=== PATIENT | female | born 1950 | race Caucasian/White ===

== ENCOUNTER 2022-05-02 16:13 | Inpatient (IN) | payer OTHER, MEDICARE, SELFPAY ==
--- NOTE | ~2022-05-02 | CT_ITS ---
EXAMINATION: CT HEAD WITHOUT CONTRAST CT CERVICAL SPINE WITHOUT CONTRAST CLINICAL INFORMATION: Trauma. Head pain. Neck pain. COMPARISON: None. TECHNIQUE: Imaging was performed from the skull base to vertex without intravenous administration of contrast. In addition, helical noncontrast CT imaging was acquired through the cervical spine and source images were reviewed along with axial reconstructions and sagittal and coronal MPRs. [This CT examination was performed using dose optimization techniques as appropriate, variously including the following: *Automated exposure control *Adjustment of mA and/or kV according to patient size (this includes techniques or standardized protocols for targeted exams where dose is matched to indication/reason for exam; i.e. extremities or head) *Use of iterative reconstruction technique] DLP: 851 mGy-cm FINDINGS: HEAD: No intracranial mass, hemorrhage, or midline shift is visualized. The ventricles and sulci are proportional. No extra-axial collections are identified. The paranasal sinuses and mastoid air cells are well aerated. CERVICAL SPINE: There is no evidence of acute cervical spine fracture. Vertebral bodies remain normal in height. Cervical vertebrae have normal alignment. There is multilevel degenerative spondylosis of the cervical spine with disc height narrowing and endplate spurs and facet joint arthrosis No pre- or paravertebral soft tissue abnormality is identified. Limited assessment of the lung apices is unremarkable. CT/CT head/brain wo IV con IMPRESSION: 1. No acute intracranial pathology. 2. No CT evidence of acute cervical spine fracture or traumatic subluxation
--- NOTE | ~2022-05-02 | XR_ITS ---
EXAMINATION: XR HIP, RIGHT CLINICAL INFORMATION: Right hip pain status post fall. COMPARISON: None TECHNIQUE: Two views of the right hip. FINDINGS: There is an acute, mildly displaced right subcapital femoral neck fracture with mild superior displacement of the distal fragment. The left hip is intact. The bony pelvis appears intact with the soft tissues are unremarkable. XR/XR hip RT w [id number] IMPRESSION: Acute, mildly displaced right subcapital femoral neck fracture.
--- NOTE | ~2022-05-02 | CT_ITS ---
EXAMINATION: CT HEAD WITHOUT CONTRAST CT CERVICAL SPINE WITHOUT CONTRAST CLINICAL INFORMATION: Trauma. Head pain. Neck pain. COMPARISON: None. TECHNIQUE: Imaging was performed from the skull base to vertex without intravenous administration of contrast. In addition, helical noncontrast CT imaging was acquired through the cervical spine and source images were reviewed along with axial reconstructions and sagittal and coronal MPRs. [This CT examination was performed using dose optimization techniques as appropriate, variously including the following: *Automated exposure control *Adjustment of mA and/or kV according to patient size (this includes techniques or standardized protocols for targeted exams where dose is matched to indication/reason for exam; i.e. extremities or head) *Use of iterative reconstruction technique] DLP: 851 mGy-cm FINDINGS: HEAD: No intracranial mass, hemorrhage, or midline shift is visualized. The ventricles and sulci are proportional. No extra-axial collections are identified. The paranasal sinuses and mastoid air cells are well aerated. CERVICAL SPINE: There is no evidence of acute cervical spine fracture. Vertebral bodies remain normal in height. Cervical vertebrae have normal alignment. There is multilevel degenerative spondylosis of the cervical spine with disc height narrowing and endplate spurs and facet joint arthrosis No pre- or paravertebral soft tissue abnormality is identified. Limited assessment of the lung apices is unremarkable. CT/CT cervical spine wo IV con IMPRESSION: 1. No acute intracranial pathology. 2. No CT evidence of acute cervical spine fracture or traumatic subluxation
--- NOTE | ~2022-05-02 | XR_ITS ---
EXAMINATION: XR CHEST CLINICAL INFORMATION: Preoperative evaluation. COMPARISON: None TECHNIQUE: Frontal view of the chest was obtained. FINDINGS: Mild coarsened interstitial markings are seen bilaterally without focal infiltrate. The heart and mediastinal structures are unremarkable. XR/XR chest 1V IMPRESSION: Mild coarsened interstitial markings may be projectional however mild chronic interstitial changes cannot be excluded. No acute cardiopulmonary process.
[2022-05-02 16:29] VITALS: BP 170/122; PULSE 78; PULSE 88; RESP 18; TEMP 36.6; O2SAT 98; BMI 16.8
--- NOTE | 2022-05-02 16:34 | ED.FALL ---
HPI - Fall General Chief Complaint: Fall Stated Complaint: FALL FROM STANDING @ WORK,HIT HEAD,R LEG PAIN,+CC Time Seen by Provider: 05/02/22 16:22 Source: patient and EMS Mode of arrival: EMS Limitations: no limitations History of Present Illness HPI Narrative: This is a 72-year-old female with history of COPD who presents to the emergency room after a trip and fall. Patient reports she was working and she tripped over a box causing her to land on her right hip. Since then she has been unable to stand up or bear weight on the hip. She did hit her head but denies any loss of consciousness or neck pain. No headache, vision changes, vomiting or dizziness. She denies any chest pain, abdominal pain, neck pain. No AC therapy use. Related Data Home Medications Medication Instructions Recorded Confirmed budesonide-formoterol HFA 160 2 puff inhalation BID 05/02/22 05/02/22 mcg-4.5 mcg/actuation aerosol inhaler (Symbicort) Allergies Allergy/AdvReac Type Severity Reaction Status Date / Time oxycodone [From PERCODAN] Allergy Unknown HALLUCINATI Verified 05/02/22 16:38 ONS Review of Systems Review of Systems: Yes all other systems are reviewed and are negative Constitutional: Constitutional: Reports no additional constitutional complaints, Denies body ache(s), Denies chills, Denies fever(s), Denies headache(s) and Denies weakness Eyes: Eyes: Reports no additional eye complaints and Denies change in vision ENT: Reports system reviewed and no additional complaints, except as documented, Denies dizziness, Denies headache(s), Denies nasal congestion, Denies nasal discharge and Denies neck pain Cardiovascular: Cardiovascular: Reports no additional cardiovascular complaints, Denies chest pain, Denies leg edema and Denies dyspnea Respiratory: Respiratory: Reports no additional respiratory complaints, Denies cough and Denies dyspnea Gastrointestinal: Gastrointestinal: Reports no additional gastrointestinal complaints, Denies abdominal pain, Denies diarrhea, Denies nausea and Denies vomiting Genitourinary: Genitourinary: Reports no additional female genitourinary complaints and Denies urinary incontinence Musculoskeletal: Musculoskeletal: Reports no additional musculoskeletal complaints, Denies back pain, Reports arthralgias, Denies joint swelling, Reports limited range of motion, Denies neck pain, Denies numbness and Denies tingling Integumentary/Breasts: Skin/Breast: Reports system reviewed and no additional complaints, except as docu and Denies rash Neurologic: Reports system reviewed and no additional complaints, except as documented, Denies Abnormal speech present, Denies dizziness, Denies headache(s), Denies numbness, Denies tingling and Denies weakness PMFSH Past Medical History Attestation statement: The following information was validated with the patient. Source: old records reviewed and nursing notes reviewed Social History Social History Alcohol intake: never Patient Tobacco Use Status: Current everyday Tobacco user Smoked in Last 30 Days: Yes Use of substances other than those prescribed or required for medical reasons: No Advance Directives: No Advance Directives Information Provided: No Nutrition Risks: No Nutritional Risk Physical Exam Vital Signs: Vital Signs: Last Vital Signs Temp 98.0 F 05/02/22 19:02 Pulse 86 05/02/22 19:02 Resp 20 05/02/22 19:53 BP 166/73 H 05/02/22 19:02 Pulse Ox 100 05/02/22 19:02 O2 Del Method 05/02/22 19:02 O2 Flow Rate 2 05/02/22 19:02 BMI result Body Mass Index 16.8 Const: General: cooperative, healthy appearing, comfortable and no acute distress Orientation/consciousness: patient oriented x3 Limitations: no limitations HEENT: Head: Yes normal to inspection, No Ferris's sign and No raccoon eyes Ears: hearing grossly normal bilaterally and TM's normal bilaterally General nose exam: Normal external nose present Face and sinus: Yes normal facial exam Mouth: Normal oral and palatal mucosa present Throat: Yes posterior oropharynx normal, Yes tonsils normal and Yes uvula midline Eyes: General: appearance normal, both eyes and all related structures Pupils: Equal, round and reactive pupils present Neck: Other: Cervical collar in place. Unable to assess range of motion to collar-no midline tenderness, step-offs deformities Neck: Yes normal visual inspection, Yes no lymphadenopathy and Yes no meningeal signs Chest: Chest palpation & inspection: normal inspection of the chest Resp: Effort & Inspection: normal respiratory effort Auscultation: clear to auscultation bilaterally Cardio: Rate: regular rate Rhythm: regular rhythm Peripheral pulses: Peripheral pulses 2+ throughout GI: Inspection: Yes normal to inspection Palpation (GI): Soft to palpation and nontender Auscultation: normal bowel sounds Back/Spine/Pelvis: Thoracic/Lumbar Spine: thoracic and lumbar spine normal to inspection Skin: General skin exam: no rashes or lesions noted Neuro: General: patient oriented x3, moves all extremities, no meningeal signs, no focal motor deficits, normal sensation to monofilament and Unable to assess gait Cranial nerves: Yes CN's II-XII intact bilaterally, Yes Equal, round and reactive pupils present, Yes Bilaterally intact EOM present, Yes Nystagmus not present, Yes Normal facial strength present and Yes Midline tongue present Cognition (Neuro): normal cognition Speech: No Abnormal speech present Gait exam (Neuro): Unable to assess gait Sensory Exam: Normal double simultaneous stimulation for sensation Extrem: Other: There is guarding of the posterior and lateral right hip with limited range of motion due to pain, palpable dorsalis pedis and posterior tibial pulses. Sensation intact distally. No tenderness over the knee/ankle/lower leg/foot General: Yes normal to inspection Course Course Course Narrative: 1729-x-ray consistent with right hip fracture. Preop x-ray of the chest ordered as well as type and screen and coags. Call at Ortho to discuss Medications Administered Discontinued Medications Generic Name Dose Route Start Last Admin Trade Name Freq PRN Reason Stop Dose Admin Hydromorphone HCl 0.5 mg 05/02/22 17:35 05/02/22 17:38 Hydromorphone Hcl 0.5 Mg/0.5 Ml Syringe IVPUSH 05/02/22 17:36 0.5 mg ONCE ONE Administration Protocol Hydromorphone HCl 0.5 mg 05/02/22 19:42 05/02/22 19:53 Hydromorphone Hcl 0.5 Mg/0.5 Ml Syringe IVPUSH 05/02/22 19:43 0.5 mg ONCE ONE Administration Protocol Morphine Sulfate 2 mg 05/02/22 16:38 05/02/22 16:45 Morphine Sulfate 2 Mg/Ml Cartridge IVPUSH 05/02/22 16:39 2 mg ONCE ONE Administration Protocol Morphine Sulfate 2 mg 05/02/22 16:56 05/02/22 17:02 Morphine Sulfate 2 Mg/Ml Cartridge IVPUSH 05/02/22 16:57 2 mg ONCE ONE Administration Protocol Ondansetron HCl 4 mg 05/02/22 16:38 05/02/22 16:45 Ondansetron Hcl 4 Mg/2 Ml Vial IVPUSH 05/02/22 16:39 4 mg ONCE ONE Administration Medical Decision Making Medical Decision Making [facility] Narrative: 72-year-old female here with right hip pain after mechanical fall which occurred while working with significant tenderness over the right lateral posterior right hip with limited range of motion due to pain. Concern for fracture Will obtain x-rays, provide analgesia Patient with head strike with no loss of consciousness. Normal neuro exam. Due to age will obtain CT head and cervical spine Differential Diagnosis Differential Diagnoses: The differential diagnosis associated with the presentation includes Fracture, contusion Admission/Observation Consideration of admission/observation: Escalation of care including admission/observation considered Patient with femoral neck fracture requiring surgical repair. Patient will need admission w/ orthopedic consultation Consult Healthcare Provider Management of the patient was discussed with: Hospitalist and Radiologic Technologist Mammogram Spoke to Dr. Merirll from orthopedics. He will follow the patient but is requesting medicine to admit her Spoke to Dr Guzmán who accepted admission Lab Data [facility] Lab Attestation statement: I reviewed the patient's lab results. 05/02/22 16:42 05/02/22 16:42 Labs: Lab Results 05/02/22 05/02/22 05/02/22 Range/Units 16:42 16:42 16:45 WBC 10.4 (4.8-10.8) X10*3/uL RBC 5.12 (4.20-5.50) X10*6/uL Hgb 15.3 (12.0-16.0) g/dl Hct 46.5 (37.0-47.0) % MCV 90.8 (80.0-98.0) fL MCH 29.9 (27.0-33.0) pg MCHC 32.9 (31.0-35.0) g/dl RDW 13.0 (11.0-16.0) % Plt Count 304 (160-400) X10*3/uL MPV 10.9 (9.4-12.3) fL Immature Gran % (Auto) 0.5 H (0.0-0.4) % Neut % (Auto) 42.4 L (45-73) % Lymph % (Auto) 47.5 H (20-40) % Dickson % (Auto) 6.6 (2-11) % Eos % (Auto) 2.4 (0-4) % Baso % (Auto) 0.6 (0-2) % Lymph # (Auto) 5.0 H (1.2-4.9) X10*3/uL Dickson # (Auto) 0.7 (0.1-1.2) X10*3/uL Eos # (Auto) 0.3 (0.0-0.4) X10*3/uL Baso # (Auto) 0.1 (0.0-0.2) X10*3/uL Abs Immat Gran (auto) 0.05 H (0.00-0.03) X10*3/uL Absolute Neuts (auto) 4.4 (2.0-8.3) x10*3/uL Absolute Nucleated RBC 0.000 (0.0-0.012) X10*3/uL Nucleated RBC % (auto) 0.0 (0.0-0.2) /100WBC PT (10.0-13.1) SEC INR (0.9-1.1) APTT (26.0-36.4) SEC Sodium 143 (135-145) mmol/L Potassium 4.2 (3.3-5.1) mmol/L Chloride 105 (96-108) mmol/L Carbon Dioxide 27 (22-29) mmol/L Anion Gap 15 (12-20) BUN 21 H (9-16) mg/dL Creatinine 0.81 (0.5-1.4) mg/dL Estim Creat Clear Calc 43.4 Estimated GFR > 60 Random Glucose 110 (60-115) mg/dL Calcium 9.4 (8.4-10.2) mg/dL Total Bilirubin 0.4 (0.0-1.0) mg/dL Direct Bilirubin < 0.2 (0.0-0.5) mg/dL AST 17 (5-31) U/L ALT 12 (0-31) U/L Alkaline Phosphatase 62 (39-117) U/L Total Protein 6.9 (6.5-8.0) g/dL Albumin 4.3 (3.5-5.0) g/dL COVID-19 (SUDEEP) Negative (Negative) COVID-19 Clin Com See Note Blood Type Antibody Screen 05/02/22 05/02/22 Range/Units 18:17 18:17 WBC (4.8-10.8) X10*3/uL RBC (4.20-5.50) X10*6/uL Hgb (12.0-16.0) g/dl Hct (37.0-47.0) % MCV (80.0-98.0) fL MCH (27.0-33.0) pg MCHC (31.0-35.0) g/dl RDW (11.0-16.0) % Plt Count (160-400) X10*3/uL MPV (9.4-12.3) fL Immature Gran % (Auto) (0.0-0.4) % Neut % (Auto) (45-73) % Lymph % (Auto) (20-40) % Dickson % (Auto) (2-11) % Eos % (Auto) (0-4) % Baso % (Auto) (0-2) % Lymph # (Auto) (1.2-4.9) X10*3/uL Dickson # (Auto) (0.1-1.2) X10*3/uL Eos # (Auto) (0.0-0.4) X10*3/uL Baso # (Auto) (0.0-0.2) X10*3/uL Abs Immat Gran (auto) (0.00-0.03) X10*3/uL Absolute Neuts (auto) (2.0-8.3) x10*3/uL Absolute Nucleated RBC (0.0-0.012) X10*3/uL Nucleated RBC % (auto) (0.0-0.2) /100WBC PT 10.8 (10.0-13.1) SEC INR 0.9 (0.9-1.1) APTT 31.2 (26.0-36.4) SEC Sodium (135-145) mmol/L Potassium (3.3-5.1) mmol/L Chloride (96-108) mmol/L Carbon Dioxide (22-29) mmol/L Anion Gap (12-20) BUN (9-16) mg/dL Creatinine (0.5-1.4) mg/dL Estim Creat Clear Calc Estimated GFR Random Glucose (60-115) mg/dL Calcium (8.4-10.2) mg/dL Total Bilirubin (0.0-1.0) mg/dL Direct Bilirubin (0.0-0.5) mg/dL AST (5-31) U/L ALT (0-31) U/L Alkaline Phosphatase (39-117) U/L Total Protein (6.5-8.0) g/dL Albumin (3.5-5.0) g/dL COVID-19 (SUDEEP) (Negative) COVID-19 Clin Com Blood Type AB Positive Antibody Screen NEGATIVE Independent Interpretation I performed an independent interpretation of an: Plain X-Ray Interpretation: Indepedentely reviewed the x-ray of the right hip which shows femoral neck fracture Independently reviewed the CT head and neck which are negative for ICH/cervical fracture Radiology Impression Discussion of test interpretation with radiology: I have reviewed the radiologist's reading. Radiologist Impression: FINDINGS: There is an acute, mildly displaced right subcapital femoral neck fracture with mild superior displacement of the distal fragment. The left hip is intact. The bony pelvis appears intact with the soft tissues are unremarkable.? XR/XR hip RT w PEL1V IMPRESSION: Acute, mildly displaced right subcapital femoral neck fracture. ?[address] [address] XRay Report Signed Patient: Anne Marie Macedo MR#: [id number] : 1950 Acct:[id number] Age/Sex: 72 / F ADM Date: 05/02/22 Loc: HO.ED Attending Dr: Ordering Physician: Deedee Weldon Date of Service: 05/02/22 Procedure(s): XR chest 1V Accession Number(s): [id number] cc: Deedee Weldon~ EXAMINATION: XR CHEST CLINICAL INFORMATION: Preoperative evaluation. COMPARISON: None TECHNIQUE: Frontal view of the chest was obtained. FINDINGS: Mild coarsened interstitial markings are seen bilaterally without focal infiltrate. The heart and mediastinal structures are unremarkable. XR/XR chest 1V IMPRESSION: Mild coarsened interstitial markings may be projectional however mild chronic interstitial changes cannot be excluded. No acute cardiopulmonary process. ? [address] [place] [address] CT Scan Report Signed Patient: Anne Marie Macedo MR#: [id number] : 1950 Acct:[id number] Age/Sex: 72 / F ADM Date: 05/02/22 Loc: HO.ED Attending Dr: Ordering Physician: Radha Gonsalez NP Date of Service: 05/02/22 Procedure(s): CT head/brain wo IV con Accession Number(s): [id number] cc: Radha Gonsalez NP~ EXAMINATION: CT HEAD WITHOUT CONTRAST CT CERVICAL SPINE WITHOUT CONTRAST CLINICAL INFORMATION: Trauma. Head pain. Neck pain.? COMPARISON: None. TECHNIQUE: Imaging was performed from the skull base to vertex without intravenous administration of contrast. In addition, helical noncontrast CT imaging was acquired through the cervical spine and source images were reviewed along with axial reconstructions and sagittal and coronal MPRs. [This CT examination was performed using dose optimization techniques as appropriate, variously including the following: *Automated exposure control *Adjustment of mA and/or kV according to patient size (this includes techniques or standardized protocols for targeted exams where dose is matched to indication/reason for exam; i.e. extremities or head) *Use of iterative reconstruction technique] DLP: 851 mGy-cm FINDINGS: HEAD: No intracranial mass, hemorrhage, or midline shift is visualized. The ventricles and sulci are proportional. No extra-axial collections are identified. The paranasal sinuses and mastoid air cells are well aerated. CERVICAL SPINE: There is no evidence of acute cervical spine fracture. Vertebral bodies remain normal in height. Cervical vertebrae have normal alignment. There is multilevel degenerative spondylosis of the cervical spine with disc height narrowing and endplate spurs and facet joint arthrosis No pre- or paravertebral soft tissue abnormality is identified. Limited assessment of the lung apices is unremarkable. CT/CT head/brain wo IV con IMPRESSION: 1. No acute intracranial pathology. 2. No CT evidence of acute cervical spine fracture or traumatic subluxation ? Independent Historian Clinical information obtained from an independent historian. History obtained from or confirmed by: EMS I received report from EMS-who provide history Discharge Plan Discharge Clinical Impression: Femoral neck fracture Patient Disposition: Admitted As Inpatient
[2022-05-02] MEDS: Morphine Sulfate 2 MG/ML CARTRIDGE IVPUSH ×2 (16:45→17:02)
[2022-05-02] MEDS: ondansetron HCL 4 MG/2 ML VIAL IVPUSH (16:45)
[2022-05-02 16:47] LABS: MANUAL DIFF FLAG NO
[2022-05-02 16:53] LABS: Basophils Absolute Auto 0.1 X10*3/uL (0.0-0.2); Basophils Percent Auto 0.6 % (0-2); Eosinophils Absolute Auto 0.3 X10*3/uL (0.0-0.4); Eosinophils Percent Auto 2.4 % (0-4); Hematocrit 46.5 % (37.0-47.0); Hemoglobin 15.3 g/dl (12.0-16.0); Imm Gran Abs Auto 0.05 X10*3/uL (0.00-0.03); Imm Gran Pct Auto 0.5 % (0.0-0.4); Lymphocytes Percent Auto 47.5 % (20-40); Mean Corpuscular HGB Conc 32.9 g/dl (31.0-35.0); Mean Corpuscular Hemoglobin 29.9 pg (27.0-33.0); Mean Corpuscular Volume 90.8 fL (80.0-98.0); Mean Platelet Volume 10.9 fL (9.4-12.3); Monocytes Absolute Auto 0.7 X10*3/uL (0.1-1.2); Monocytes Percent Auto 6.6 % (2-11); Neutrophils Absolute Auto 4.4 x10*3/uL (2.0-8.3); Neutrophils Percent Auto 42.4 % (45-73); Platelet Count 304 X10*3/uL (160-400); Red Blood Count 5.12 X10*6/uL (4.20-5.50); White Blood Count 10.4 X10*3/uL (4.8-10.8)
[2022-05-02 17:02] VITALS: RESP 18
[2022-05-02 17:07] LABS: Alanine Aminotransferase 12 U/L (0-31); Albumin Level 4.3 g/dL (3.5-5.0); Alkaline Phosphatase 62 U/L (39-117); Anion Gap 15 (12-20); Aspartate Amino Transferase 17 U/L (5-31); Bilirubin Direct < 0.2 mg/dL (0.0-0.5); Bilirubin Total 0.4 mg/dL (0.0-1.0); Blood Urea Nitrogen 21 mg/dL (9-16); Calcium 9.4 mg/dL (8.4-10.2); Carbon Dioxide 27 mmol/L (22-29); Chloride 105 mmol/L (96-108); Creatinine Clr Calc Pharmacy 43.4; Estimated Glomerular Filt Rate > 60; Glucose Random 110 mg/dL (60-115); Potassium 4.2 mmol/L (3.3-5.1); Sodium 143 mmol/L (135-145); Total Protein 6.9 g/dL (6.5-8.0)
[2022-05-02 17:11] LABS: COVID-19 Test Negative (Negative); IDNOW Serial# 16C4AD1C
[2022-05-02] MEDS: HYDROmorphone HCl 0.5 MG/0.5 ML SYRINGE IVPUSH ×2 (17:38→19:53)
[2022-05-02 18:38] LABS: INTERNATIONAL NORM RATIO 0.9 (0.9-1.1); Prothrombin Time 10.8 SEC (10.0-13.1)
[2022-05-02 18:41] LABS: Partial Thromboplastin Time 31.2 SEC (26.0-36.4)
[2022-05-02 19:02] VITALS: BP 166/73; PULSE 86; RESP 16; TEMP 36.7; O2SAT 100
[2022-05-02 19:53] VITALS: RESP 20
--- NOTE | 2022-05-02 20:01 | PC.NURSE ---
PT A&Ox4, reports 10/10 R hip pain. PT is laying flat on stretcher, c-collar in place, very uncomfortable. R leg noted to be shorted ,unable to move R leg, able to feel touch, wiggles toes, skin warm and dry. Provider notified of PT pain. Med given as documented.
--- NOTE | 2022-05-02 20:45 | PC.NURSE ---
16F calderon cath placed, draining dark yellow urine. PT tolerated well.
--- NOTE | 2022-05-02 22:08 | PC.NURSE ---
PT sleeping, no apparent distress, awaiting for bed assignment. Will CTM.
--- NOTE | 2022-05-02 22:23 | P.HPHOSP_ITS ---
History of Present Illness Date of Service: 05/02/22 Attending physician on admission: Hayden Guzmán Chief Complaint: Right hip pain Pt is a 72-year-old female with a PMH significant for COPD and active smoker of 1-pack per day?who presents to the ED after a mechanical fall at work. Pt states she was at [employer] when she tripped over a box and landed on her right hip. Endorses hitting her head but no LOC. Pt was unable to support her weight or walk after fall. She only reports severe right hip pain. Denies headache, vision changes, dizziness/lightheadedness. No chest pain/pressure, palpitations. Denies shortness of breath, nausea, vomiting, diarrhea, abdominal pain. No numbness or tingling in extremities. In the ED patient hemodynamically stable and labs were largely unremarkable. CXR showed no acute cardiopulmonary process, but mild coarsened interstitial marking s. X-ray of hip and pelvis showed acute, mildly displaced right subcapital femoral neck fracture. CT of head and cervical spine?showed no acute intracranial pathology and no evidence of acute cervical spine fracture or traumatic subluxation. Patient treated with ondansertron and pain management. P t will be admitted to the hospital for surgical repair of right femoral neck fracture. Review of Systems Review of Systems: Severe right hip pain Denies headache, vision changes, dizziness/lightheadedness No chest pain/pressure, palpitations Denies shortness of breath, nausea, vomiting, diarrhea, abdominal pain No numbness or tingling in extremities. Yes all other systems are reviewed and are negative PMFSH Social History Alcohol intake: never Patient Tobacco Use Status: Current everyday Tobacco user Smoked in Last 30 Days: Yes Use of substances other than those prescribed or required for medical reasons: No Advance Directives: No Advance Directives Information Provided: No Nutrition Risks: No Nutritional Risk Meds Allergies Allergy/AdvReac Type Severity Reaction Status Date / Time oxycodone [From PERCODAN] Allergy Unknown HALLUCINATI Verified 05/02/22 16:38 ONS Active Medications: Current Medications Fluticasone/Vilanterol (Fluticasone/Vilanterol 200/25 Blst.W.Dev) 1 puff INHALE RDAILY TRAVON Morphine Sulfate (Morphine Sulfate 4 Mg/Ml Cartridge) 4 mg IVPUSH Q4H PRN; Protocol PRN Reason: Pain, Severe (Pain Scale 7-10) Nicotine (Nicotine 21 Mg Patch.Td24) 21 mg TRANSDERMA DAILY COUNT INCLUDES THE [facility] Pharmacy Consult (Consult Rx Perform Med Rec) 1 each MISCELLANE ONCE PRN PRN Reason: Consult order Home Medications Medication Instructions Recorded Confirmed Last Taken Type budesonide-formoterol HFA 160 2 puff inhalation BID 05/02/22 05/02/22 Unknown History mcg-4.5 mcg/actuation aerosol inhaler (Symbicort) Physical Exam Vital Signs and Narrative: Vital Signs: Last Vital Signs Temp 98.0 F 05/02/22 19:02 Pulse 86 05/02/22 19:02 Resp 20 05/02/22 19:53 BP 166/73 H 05/02/22 19:02 Pulse Ox 100 05/02/22 19:02 O2 Del Method 05/02/22 19:02 O2 Flow Rate 2 05/02/22 19:02 BMI result Body Mass Index 16.8 Constitutional: Alert, looking uncomfortable. Mental Status: Oriented to person, place and time. Eyes: Pupils are equal, round, and reactive to light. Ear, Nose, and Throat: Oropharynx clear, mucous membranes dry. Ears and nose without deformities. Trachea midline. Respiratory: Clear to auscultation bilaterally. No wheezing, rales, or rhonchi. Cardiovascular: S1, S2 regular. No murmurs, rubs, or gallops. Gastrointestinal: Abdomen soft, non-tender, non-distended. Normal bowel sounds. Neurologic: Cranial nerves II-XII are grossly intact. No focal neurological deficits. Skin: No rashes or lesions noted. Musculoskeletal: Right leg shortened and externally rotated. Extremities: No edema. Psychiatric: Normal mood and affect. Results Labs 05/02/22 16:42 05/02/22 16:42 Labs: Laboratory Results - last 24 hr 05/02/22 05/02/22 05/02/22 16:42 16:42 16:45 MCV 90.8 MCH 29.9 MCHC 32.9 RDW 13.0 Plt Count 304 MPV 10.9 Immature Gran % (Auto) 0.5 H Neut % (Auto) 42.4 L Lymph % (Auto) 47.5 H Waldo % (Auto) 6.6 Eos % (Auto) 2.4 Baso % (Auto) 0.6 Lymph # (Auto) 5.0 H Waldo # (Auto) 0.7 Eos # (Auto) 0.3 Baso # (Auto) 0.1 Abs Immat Gran (auto) 0.05 H Absolute Neuts (auto) 4.4 Absolute Nucleated RBC 0.000 Nucleated RBC % (auto) 0.0 PT INR APTT Anion Gap 15 Estim Creat Clear Calc 43.4 Estimated GFR > 60 Random Glucose 110 Calcium 9.4 Total Bilirubin 0.4 Direct Bilirubin < 0.2 AST 17 ALT 12 Alkaline Phosphatase 62 Total Protein 6.9 Albumin 4.3 COVID-19 (SUDEEP) Negative COVID-19 Clin Com See Note Blood Type Antibody Screen 05/02/22 05/02/22 18:17 18:17 MCV MCH MCHC RDW Plt Count MPV Immature Gran % (Auto) Neut % (Auto) Lymph % (Auto) Waldo % (Auto) Eos % (Auto) Baso % (Auto) Lymph # (Auto) Waldo # (Auto) Eos # (Auto) Baso # (Auto) Abs Immat Gran (auto) Absolute Neuts (auto) Absolute Nucleated RBC Nucleated RBC % (auto) PT 10.8 INR 0.9 APTT 31.2 Anion Gap Estim Creat Clear Calc Estimated GFR Random Glucose Calcium Total Bilirubin Direct Bilirubin AST ALT Alkaline Phosphatase Total Protein Albumin COVID-19 (SUDEEP) COVID-19 Clin Com Blood Type AB Positive Antibody Screen NEGATIVE Imaging Radiologist's Impressions: Impressions Chest X-Ray 05/02/22 17:27 IMPRESSION: Mild coarsened interstitial markings may be projectional however mild chronic interstitial changes cannot be excluded. No acute cardiopulmonary process. Hip/Pelvis X-Ray 05/02/22 17:27 IMPRESSION: Acute, mildly displaced right subcapital femoral neck fracture. Cervical Spine CT 05/02/22 17:45 IMPRESSION: 1. No acute intracranial pathology. 2. No CT evidence of acute cervical spine fracture or traumatic subluxation Head CT 05/02/22 17:45 IMPRESSION: 1. No acute intracranial pathology. 2. No CT evidence of acute cervical spine fracture or traumatic subluxation Assessment and Plan (1) Femoral neck fracture: Status: Acute Plan Pt is a 72-year-old female with a PMH significant for COPD and active smoker of 1-pack per day?who presents to the ED after a mechanical fall at work. Pt will be admitted to the hospital for surgical repair of right femoral neck fracture. Right femoral neck fracture Ortho consulted, plan on performing surgery in the morning Clear liquid diet now, NPO after midnight Pain management: morphine 4mg q4 COPD Does not appear in acute exacerbation at the time Continue home inhaler Nicotine dependence Smokes 1 pack of cigarettes a day Nicotine replacement therapy Encourage cessation Full Code Attending:?Dr. Guzmán DVT Prophylaxis: Pneumatic boots Pt will require a hospitalization of at least two nights for surgical repair of right femoral neck fracture. Time Spent With Patient Time: Total time managing care of this patient today ____ minutes. Quality Stroke Does the patient have a stroke diagnosis?: No VTE Prior VTE?: No VTE Risk Level:: Medical - moderate - high VTE Device Contraindication: N/A - Device Ordered VTE Drug Contraindication: Treatment Not Indicated
[2022-05-03] VITALS (13 sets, daily range): BP systolic 106–157; BP diastolic 43–84; PULSE 65–97; RESP 14–20; TEMP 36–37.1; O2SAT 92–98; BMI 16.3; BMI 16.9
--- NOTE | 2022-05-03 | ECG_ITS ---
Test Reason : preop Blood Pressure : / mmHG Vent. Rate : 076 BPM Atrial Rate : 076 BPM P-R Int : 132 ms QRS Dur : 070 ms QT Int : 426 ms P-R-T Axes : 082 057 079 degrees QTc Int : 479 ms Sinus rhythm with Premature supraventricular complexes Otherwise normal ECG No previous ECGs available Referred By: Renato Trujillo Electronically Signed By:DEMETRIO SHEN MD
[2022-05-03] MEDS: 0.9 % Sodium Chloride Flush 3 ML SYRINGE IVFLUSH ×4 (00:14→23:39)
[2022-05-03] MEDS: Morphine Sulfate 4 MG/ML CARTRIDGE IVPUSH ×3 (00:16→22:14)
--- NOTE | 2022-05-03 00:20 | PC.NURSE ---
PT reports 10/10 pain to R hip. Meds given as documented. RN to RN report given, PT will be transported to room 385. PT aware of plan.
--- NOTE | 2022-05-03 07:55 | P.CONOP_ITS ---
History of Present Illness HPI Consult date: 05/03/22 Chief complaint: Fractured right hip Narrative: Ms. Macedo is a 72 yo female who was at work at [employer] when she tripped over a box and fell landing on the right hip. She felt immediate pain and was unable to ambulate. She was brought to the ED by EMS where x-rays obtained revealed a right hip femoral neck fracture. She was admitted to the medicine service with orthopedic consulte. She reportedly lives at home with her son. Does not walk with a walker or cane. Review of Systems Review of Systems: Yes all other systems are reviewed and are negative [facility] Social History Social History Household Members: Family Housing: House Do you presently have visiting nurse or other home services: No Alcohol intake: never Patient Tobacco Use Status: Current everyday Tobacco user Tobacco use type: Cigarette Smoked in Last 30 Days: Yes e-Cigarette/Vaping Use: Never Used Patient Interested in Nicotine Replacement: No Second Hand Smoke Exposure: No Use of substances other than those prescribed or required for medical reasons: No Currently Displaying Signs/Symptoms of Drug Intoxication Withdrawal: No Any prior treatment program specific to substance use: No Have you been hit, kicked, punched, or otherwise hurt by someone within the past year? If so, by whom?: No Do you feel safe in your current relationship?: No Current Relationship Is there a partner from a previous relationship who is making you feel unsafe now?: No Are you made to feel afraid or neglected: No Advance Directives: No Advance Directives Information Provided: No Do you have thoughts of harming others: None Do you have a plan to hurt others: No Plan Recently lost weight without trying: No Eating poorly because of decreased appetite: No Nutrition Risks: No Nutritional Risk Patient : No : No Poor oral hygiene: No Meds Allergies Allergy/AdvReac Type Severity Reaction Status Date / Time oxycodone [From PERCODAN] Allergy Unknown HALLUCINATI Verified 05/02/22 16:38 ONS Active Medications: Current Medications Docusate Sodium (Docusate Sodium 100 Mg Capsule) 100 mg PO DAILY PRN PRN Reason: Constipation Fluticasone/Vilanterol (Fluticasone/Vilanterol 200/25 Blst.W.Dev) 1 puff INHALE RDAILY TRAVON Morphine Sulfate (Morphine Sulfate 4 Mg/Ml Cartridge) 4 mg IVPUSH Q4H PRN; Protocol PRN Reason: Pain, Severe (Pain Scale 7-10) Last Admin: 05/03/22 06:12 Dose: 4 mg Nicotine (Nicotine 21 Mg Patch.Td24) 21 mg TRANSDERMA DAILY [facility] Ondansetron HCl (Ondansetron Hcl 4 Mg/2 Ml Vial) 4 mg IVPUSH Q8H PRN PRN Reason: Nausea and Vomiting Pharmacy Consult (Consult Rx Perform Med Rec) 1 each MISCELLANE ONCE PRN PRN Reason: Consult order Sodium Chloride (0.9 % Sodium Chloride Flush 3 Ml Syringe) 3 ml IVFLUSH QSHIFT [facility] Last Admin: 05/03/22 00:14 Dose: 3 ml Home Medications Medication Instructions Recorded Confirmed Last Taken Type budesonide-formoterol HFA 160 2 puff inhalation BID 05/02/22 05/02/22 Unknown History mcg-4.5 mcg/actuation aerosol inhaler (Symbicort) Physical Exam Vital Signs: Vital Signs: Last Vital Signs Temp 97.5 F 05/03/22 03:29 Pulse 88 05/03/22 03:29 Resp 17 05/03/22 03:29 BP 132/67 05/03/22 03:29 Pulse Ox 94 05/03/22 03:29 O2 Del Method 05/03/22 03:29 O2 Flow Rate 2 05/03/22 03:29 BMI result Body Mass Index 16.3 Const: General: cooperative, healthy appearing and no acute distress Resp: Effort & Inspection: normal respiratory effort and able to speak in complete sentences Cardio: Rate: regular rate Peripheral pulses: Peripheral pulses 2+ throughout GI: Palpation (GI): Soft to palpation Skin: Lesions: no lesions Rashes: no rashes Extrem: Other: Right lower extremity is shortened and externally rotated. Sensatin intact. Pain with log roll. Able to move digits. Pedal pulse intact. Results Labs 05/02/22 16:42 05/02/22 16:42 Labs: Abnormal lab results 05/02/22 05/02/22 Range/Units 16:42 16:42 Immature Gran % (Auto) 0.5 H (0.0-0.4) % Neut % (Auto) 42.4 L (45-73) % Lymph % (Auto) 47.5 H (20-40) % Lymph # (Auto) 5.0 H (1.2-4.9) X10*3/uL Abs Immat Gran (auto) 0.05 H (0.00-0.03) X10*3/uL BUN 21 H (9-16) mg/dL H & H 05/02/22 Range/Units 16:42 Hgb 15.3 (12.0-16.0) g/dl Hct 46.5 (37.0-47.0) % Coagulation 05/02/22 Range/Units 18:17 INR 0.9 (0.9-1.1) All other labs normal. Assessment and Plan (1) Femoral neck fracture: Status: Acute I discussed the case with Dr. Merrill and explained the extent of the injury to the patient and options available which include surgical intervention. I explained the procedure in detail along with the length of recovery and rehab course. I explained the risk, benefits and alternatives. Risk including, but not limited to infection, blood clots, bleeding, non union or malunion and nerve/tissue damage to surrounding areas. I answered all their questions and with their understanding they have consented to move forward with Operative Fixation of the right hip. The patient will be T&S, med clearance obtained and remain NPO. Time Spent With Patient Time: Total time managing care of this patient today ____ minutes. Procedures Date of Service Date of Service: 05/03/22
[2022-05-03] MEDS: Nicotine 21 MG PATCH.TD24 TRANSDERMA (08:18)
--- NOTE | 2022-05-03 10:34 | MHC.CM.PN ---
PATIENT LIVES WITHY ONE OF HER ADULT SONS, JAMIE NO DME OR VNA SERVICES COVID VACCINATED. 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 TODAY
--- NOTE | 2022-05-03 11:26 | P.CONAN_ITS ---
HPI - Anesthesia Eval Consult details Narrative: Hip hemiarthroplasty PMFSH Active Problems Active Problems: All Active Problems (Updated 05/02/22 @ 18:13 by Radha Caceres NP) Femoral neck fracture (Acute) Family History Family history of problems with anesthesia: No Surgical History History of Problems with Anesthesia: No Social History Social History Household Members: Family Housing: House Do you presently have visiting nurse or other home services: No Alcohol intake: never Patient Tobacco Use Status: Current everyday Tobacco user Tobacco use type: Cigarette Smoked in Last 30 Days: Yes e-Cigarette/Vaping Use: Never Used Patient Interested in Nicotine Replacement: No Second Hand Smoke Exposure: No Use of substances other than those prescribed or required for medical reasons: No Currently Displaying Signs/Symptoms of Drug Intoxication Withdrawal: No Any prior treatment program specific to substance use: No Have you been hit, kicked, punched, or otherwise hurt by someone within the past year? If so, by whom?: No Do you feel safe in your current relationship?: No Current Relationship Is there a partner from a previous relationship who is making you feel unsafe now?: No Are you made to feel afraid or neglected: No Advance Directives: No Advance Directives Information Provided: No Do you have thoughts of harming others: None Do you have a plan to hurt others: No Plan Recently lost weight without trying: No Eating poorly because of decreased appetite: No Nutrition Risks: No Nutritional Risk Patient : No : No Poor oral hygiene: No service: No Current occupational status: employed Meds Allergies Allergy/AdvReac Type Severity Reaction Status Date / Time oxycodone [From PERCODAN] Allergy Unknown HALLUCINATI Verified 05/02/22 16:38 ONS Active Medications: Current Medications Albuterol/Ipratropium (Albuterol/Iprat 2.5/0.5mg 3 Ml Ampul.Neb) 3 ml INHALE RQ4H WHILE AWAKE PRN PRN Reason: sob Docusate Sodium (Docusate Sodium 100 Mg Capsule) 100 mg PO DAILY PRN PRN Reason: Constipation Fluticasone/Vilanterol (Fluticasone/Vilanterol 200/25 Blst.W.Dev) 1 puff INHALE RDAILY TRAVON Morphine Sulfate (Morphine Sulfate 4 Mg/Ml Cartridge) 4 mg IVPUSH Q4H PRN; Protocol PRN Reason: Pain, Severe (Pain Scale 7-10) Last Admin: 05/03/22 06:12 Dose: 4 mg Nicotine (Nicotine 21 Mg Patch.Td24) 21 mg TRANSDERMA DAILY [facility] Last Admin: 05/03/22 08:18 Dose: 21 mg Ondansetron HCl (Ondansetron Hcl 4 Mg/2 Ml Vial) 4 mg IVPUSH Q8H PRN PRN Reason: Nausea and Vomiting Pharmacy Consult (Consult Rx Perform Med Rec) 1 each MISCELLANE ONCE PRN PRN Reason: Consult order Sodium Chloride (0.9 % Sodium Chloride Flush 3 Ml Syringe) 3 ml IVFLUSH QSHIFT [facility] Last Admin: 05/03/22 08:21 Dose: 3 ml Home Medications Medication Instructions Recorded Confirmed Last Taken Type budesonide-formoterol HFA 160 2 puff inhalation BID 05/02/22 05/02/22 Unknown History mcg-4.5 mcg/actuation aerosol inhaler (Symbicort) Exam Exam Date and Time: May 03, 2022 1126 Height,Weight and Vital Signs: Height 5 ft 4 in Weight 43.2 kg Last Vital Signs Temp 96.8 F 05/03/22 07:56 Pulse 75 05/03/22 07:56 Resp 18 05/03/22 07:56 BP 139/65 05/03/22 07:56 Pulse Ox 95 05/03/22 07:56 O2 Del Method 05/03/22 07:56 O2 Flow Rate 2 05/03/22 07:56 Pertinent Lab Results Pertinent Lab Results: Laboratory Tests 05/02/22 05/02/22 05/02/22 16:42 16:42 16:45 WBC 10.4 RBC 5.12 Hgb 15.3 Hct 46.5 MCV 90.8 MCH 29.9 MCHC 32.9 RDW 13.0 Plt Count 304 MPV 10.9 Immature Gran % (Auto) 0.5 H Neut % (Auto) 42.4 L Lymph % (Auto) 47.5 H [place] % (Auto) 6.6 Eos % (Auto) 2.4 Baso % (Auto) 0.6 Lymph # (Auto) 5.0 H [place] # (Auto) 0.7 Eos # (Auto) 0.3 Baso # (Auto) 0.1 Abs Immat Gran (auto) 0.05 H Absolute Neuts (auto) 4.4 Absolute Nucleated RBC 0.000 Nucleated RBC % (auto) 0.0 PT INR APTT Sodium 143 Potassium 4.2 Chloride 105 Carbon Dioxide 27 Anion Gap 15 BUN 21 H Creatinine 0.81 Estim Creat Clear Calc 43.4 Estimated GFR > 60 Random Glucose 110 Calcium 9.4 Total Bilirubin 0.4 Direct Bilirubin < 0.2 AST 17 ALT 12 Alkaline Phosphatase 62 Total Protein 6.9 Albumin 4.3 COVID-19 (SUDEEP) Negative COVID-19 Clin Com See Note Blood Type Antibody Screen 05/02/22 05/02/22 18:17 18:17 WBC RBC Hgb Hct MCV MCH MCHC RDW Plt Count MPV Immature Gran % (Auto) Neut % (Auto) Lymph % (Auto) [place] % (Auto) Eos % (Auto) Baso % (Auto) Lymph # (Auto) [place] # (Auto) Eos # (Auto) Baso # (Auto) Abs Immat Gran (auto) Absolute Neuts (auto) Absolute Nucleated RBC Nucleated RBC % (auto) PT 10.8 INR 0.9 APTT 31.2 Sodium Potassium Chloride Carbon Dioxide Anion Gap BUN Creatinine Estim Creat Clear Calc Estimated GFR Random Glucose Calcium Total Bilirubin Direct Bilirubin AST ALT Alkaline Phosphatase Total Protein Albumin COVID-19 (SUDEEP) COVID-19 Clin Com Blood Type AB Positive Antibody Screen NEGATIVE Airway Mallampati Class: II TM Dist: >3cm Neck ROM: Limited Loose/Missing/Broken Teeth: No Heart: rrr Lungs: diminished bs Assessment and Plan Final Anesthetic Review Family History of Problems with Anesthesia: No History of Problems with Anesthesia: No NPO: Yes ASA Class: III (Lifetime smoker) Final Preanesthetic Review: No Changes in Pt Med Stat, Meds/Allgs Chart Reviewed, Consent Obtained/Reviewed and Anes Risks/Benef Reviewed Patient Risk: Intermediate Procedure Risk: Intermediate Anesthetic Plan Anesthetic Plan: GA and Agree w/ Assess. and Plan Disposition: Standard PACU
--- NOTE | 2022-05-03 11:33 | MHC.CM.PN ---
NEW HCP IN CHART. PCP IS AT [facility] Kathie GORDON SHE IS UNSURE OF HER NEW PROVIDER'S NAME
--- NOTE | 2022-05-03 13:00 | P.PNIM_ITS ---
Subjective Subjective Date of Service: 05/03/22 Interval History: Complaining of right hip pain with movement, no pain if stays still, denies chest pain, no shortness of breath, no lightheadedness, no dizziness, no other acute issues overnight, oxygenation stable 95% on 2 L. Review of Systems Review of Systems: Yes all other systems are reviewed and are negative Physical Exam Vital Signs: Vital Signs: Last Vital Signs Temp 97.5 F 05/03/22 11:56 Pulse 80 05/03/22 11:56 Resp 18 05/03/22 11:56 BP 144/73 H 05/03/22 11:56 Pulse Ox 95 05/03/22 11:56 O2 Del Method 05/03/22 11:56 O2 Flow Rate 2 05/03/22 07:56 BMI result Body Mass Index 16.9 Const: Other: General resting in bed, no acute distress. Anicteric sclera Neck supple no JVD. CVS regular rate rhythm, Respiratory lungs clear to auscultation, no respiratory distress, no wheeze, no rhonchi. Gastrointestinal abdomen soft, nontender, bowel sounds audible, no guarding , no rigidity. Extremities no edema. Right leg externally rotated Neuro nonfocal , speech clear. Skin no rash Psych appropriate affect Objective Data Active Medications Albuterol/Ipratropium (Albuterol/Iprat 2.5/0.5mg 3 Ml Ampul.Neb) 3 ml INHALE RQ4H WHILE AWAKE PRN PRN Reason: sob Docusate Sodium (Docusate Sodium 100 Mg Capsule) 100 mg PO DAILY PRN PRN Reason: Constipation Fluticasone/Vilanterol (Fluticasone/Vilanterol 200/25 Blst.W.Dev) 1 puff INHALE RDAILY [facility] Last Admin: 05/03/22 12:27 Dose: Not Given Documented By: DELORIS Non-Admin Reason: Med Not Available Morphine Sulfate (Morphine Sulfate 4 Mg/Ml Cartridge) 4 mg IVPUSH Q4H PRN; Protocol PRN Reason: Pain, Severe (Pain Scale 7-10) Last Admin: 05/03/22 06:12 Dose: 4 mg Documented By: CAROLINE Nicotine (Nicotine 21 Mg Patch.Td24) 21 mg TRANSDERMA DAILY [facility] Last Admin: 05/03/22 08:18 Dose: 21 mg Documented By: ALEX Ondansetron HCl (Ondansetron Hcl 4 Mg/2 Ml Vial) 4 mg IVPUSH Q8H PRN PRN Reason: Nausea and Vomiting Pharmacy Consult (Consult Rx Perform Med Rec) 1 each MISCELLANE ONCE PRN PRN Reason: Consult order Sodium Chloride (0.9 % Sodium Chloride Flush 3 Ml Syringe) [facility] Last Admin: 05/03/22 08:21 Dose: 3 ml Documented By: ALEX Labs 05/02/22 16:42 05/02/22 16:42 Labs: Laboratory Results - last 24 hr 05/02/22 05/02/22 05/02/22 16:42 16:42 16:45 MCV 90.8 MCH 29.9 MCHC 32.9 RDW 13.0 Plt Count 304 MPV 10.9 Immature Gran % (Auto) 0.5 H Neut % (Auto) 42.4 L Lymph % (Auto) 47.5 H [place] % (Auto) 6.6 Eos % (Auto) 2.4 Baso % (Auto) 0.6 Lymph # (Auto) 5.0 H [place] # (Auto) 0.7 Eos # (Auto) 0.3 Baso # (Auto) 0.1 Abs Immat Gran (auto) 0.05 H Absolute Neuts (auto) 4.4 Absolute Nucleated RBC 0.000 Nucleated RBC % (auto) 0.0 PT INR APTT Anion Gap 15 Estim Creat Clear Calc 43.4 Estimated GFR > 60 Random Glucose 110 Calcium 9.4 Total Bilirubin 0.4 Direct Bilirubin < 0.2 AST 17 ALT 12 Alkaline Phosphatase 62 Total Protein 6.9 Albumin 4.3 COVID-19 (SUDEEP) Negative COVID-19 Clin Com See Note Blood Type Antibody Screen 05/02/22 05/02/22 18:17 18:17 MCV MCH MCHC RDW Plt Count MPV Immature Gran % (Auto) Neut % (Auto) Lymph % (Auto) [place] % (Auto) Eos % (Auto) Baso % (Auto) Lymph # (Auto) [place] # (Auto) Eos # (Auto) Baso # (Auto) Abs Immat Gran (auto) Absolute Neuts (auto) Absolute Nucleated RBC Nucleated RBC % (auto) PT 10.8 INR 0.9 APTT 31.2 Anion Gap Estim Creat Clear Calc Estimated GFR Random Glucose Calcium Total Bilirubin Direct Bilirubin AST ALT Alkaline Phosphatase Total Protein Albumin COVID-19 (SUDEEP) COVID-19 Clin Com Blood Type AB Positive Antibody Screen NEGATIVE Assessment and Plan (1) Femoral neck fracture: Status: Acute Plan 72-year-old female with a PMH significant for COPD and active smoker of 1-pack per day?who presents to the ED after a mechanical fall at work. Pt will be admitted to the hospital for surgical repair of right femoral neck fracture. Right femoral neck fracture Mechanical fall, seen by Ortho scheduled for surgery this afternoon EKG showed no acute ischemic changes, patient not on home oxygen, oxygenation stable at present Continue IV morphine 4mg q4 as needed, continue Colace as needed. Encouraged incentive spirometry. Physical therapy and DVT prophylaxis as per Ortho, patient at intermediate risk for an intermediate risk surgery,will need close postoperative pulmonary follow- up. COPD no acute exacerbation at the time,Continue home inhaler will add as needed DuoNeb Nicotine dependence Smokes 1 pack of cigarettes a day, placed on nicotine patch 21 mg daily, counseling provided Full Code DVT Prophylaxis: Pneumatic boots Pt will require continued inpatient hospitalization for surgical repair of rig ht femoral neck fracture and pain management. Time Spent With Patient Time: Total time managing care of this patient today ____ minutes. Quality Stroke Does the patient have a stroke diagnosis?: No VTE Prior VTE?: No VTE Risk Level:: Medical - moderate - high VTE Device Contraindication: N/A - Device Ordered VTE Drug Contraindication: Treatment Not Indicated
--- NOTE | 2022-05-03 13:20 | MHC.SHP ---
Pre-Procedural Eval Section A Date of Service: 05/03/22 The patient is an INPATIENT: Yes Changes since office visit: No Cold of Flu in the past 2 weeks, No New Medical Problems, No Changes in Medication and No Patient answered all questions The History & Physical has been completed within 30 days and I have reviewed it.: Yes Section B Chief Complaint: Fractured right hip Allergies: Allergies Allergy/AdvReac Type Severity Reaction Status Date / Time oxycodone [From PERCODAN] Allergy Unknown HALLUCINATI Verified 05/02/22 16:38 ONS Plan I have reviewed the history and physical and performed a pertinent physical examination on my patient. No changes have occurred unless specified. Time Spent With Patient Time: Total time managing care of this patient today ____ minutes.
--- NOTE | 2022-05-03 13:21 | PM.OP ---
Brief Operative Note Date of Service: 05/03/22 Pre-op diagnosis: right femoral neck fracture Post-op diagnosis: same Procedure: Right hip hemiarthroplasty Implants: [place] Accolade 2 127 deg #4 with +4 bipolar Surgeon: Ranjit Merrill MD Anesthesia: GETA and local Was an Brazer Crawler Torch used for this Procedure?: Yes Brazer Crawler Torch: Jacobo Bass Estimated blood loss (mL): 100 IV fluids (mL): 600 Pathology: other Condition: stable Disposition: PACU
--- NOTE | 2022-05-03 13:24 | P.OP_ITS ---
Operative Note Operative Note Date of Service: 05/03/22 Narrative: Date of Service: 05/03/22 Pre-op diagnosis: right femoral neck fracture Post-op diagnosis: same Procedure: Right hip hemiarthroplasty Implants: [place] Accolade 2 127 deg #4 with +4 /42 bipolar Surgeon: Ranjit Merrill MD Anesthesia: GETA and local Was an Manager Of Financial Planning used for this Procedure?: Yes Manager Of Financial Planning: Jacobo Bass Estimated blood loss (mL): 100 IV fluids (mL): 600 Pathology: other Condition: stable Disposition: PACU Procedure in detail: Patient was brought to the operative room placed in the lateral decubitus position. All bony prominences were well padded and the was prepped and draped in standard sterile fashion. IV antibiotics per weight were administered and a time-out was called to identify proper site proper procedure proper surgeon. Radiographs were available and confirmed. I began by making a curvilinear incision over the posterolateral aspect of the greater trochanter. Dissection was taken down to the tensor fascia which was incised in line with the incision and a Charnley retractor was placed. The hip was internally rotated and the external rotators were identified. All vessels in the area were cauterized and a full-thickness capsular/external rotator layer was developed in a hockey-stick fashion starting just proximal to the piriformis. This layer was tagged and the displaced femoral neck fracture was identified. Clean-up cuts was performed while protecxtion the posterolateral soft tissues and the head was removed and measured (42 mm) on the back table. I then copiously irrigated the acetabulum and removed all bony fragments. Once this was done I used a cookie cutter to lateralize and a Charnley awl to identify the canal and then sequentially broached up to a 127 deg #4. I then trialed with a standard head and a bipolar component matching the femoral head size. I was satisfied with the range of motion and stability and length. Therefore I removed all instrumentation and copiously irrigated. I then placed my final femoral implant and then retrialed. I was satisfied with the +4/42 implant. My final bipolar components were then placed. I closed the capsular layer with FiberWire and then, after a three minute iodine soak I performed a layered closure with pj on skin. The patient was placed in sterile dressing extubated brought to recovery room in stable condition there were no known complications.
[2022-05-04] VITALS (7 sets, daily range): BP systolic 72–126; BP diastolic 48–81; PULSE 66–88; RESP 16–19; TEMP 37.1–37.7; O2SAT 85–98
[2022-05-04 06:29] LABS: Hematocrit 38.4 % (37.0-47.0); Hemoglobin 12.7 g/dl (12.0-16.0); Mean Corpuscular HGB Conc 33.1 g/dl (31.0-35.0); Mean Corpuscular Volume 90.8 fL (80.0-98.0); Mean Platelet Volume 11.1 fL (9.4-12.3); Platelet Count 204 X10*3/uL (160-400); Red Blood Count 4.23 X10*6/uL (4.20-5.50); Red Cell Distribution Width 13.1 % (11.0-16.0); White Blood Count 10.6 X10*3/uL (4.8-10.8)
[2022-05-04] MEDS: Fluticasone/Vilanterol 200/25 BLST.W.DEV 1 PUFF INHALE (08:20)
[2022-05-04] MEDS: Nicotine 21 MG PATCH.TD24 TRANSDERMA (08:40)
[2022-05-04] MEDS: Morphine Sulfate 4 MG/ML CARTRIDGE IVPUSH ×2 (08:41→22:04)
[2022-05-04] MEDS: 0.9 % Sodium Chloride Flush 3 ML SYRINGE IVFLUSH ×2 (08:44→16:21)
--- NOTE | 2022-05-04 09:25 | P.PNIM_ITS ---
Subjective Subjective Date of Service: 05/04/22 Interval History: Patient feeling better this morning, good pain control, offers no other complaints, no shortness of breath, no chest pain, no palpitation, seems motivated to participate with physical therapy, no acute issues overnight, [place] erating diet with no nausea, no vomiting, no abdominal pain. Review of Systems Review of Systems: Yes all other systems are reviewed and are negative Physical Exam Vital Signs: Vital Signs: Last Vital Signs Temp 98.7 F 05/03/22 23:58 Pulse 66 05/03/22 23:58 Resp 18 05/04/22 08:21 BP 119/57 L 05/03/22 23:58 Pulse Ox 96 05/03/22 23:58 O2 Del Method 05/03/22 23:58 O2 Flow Rate 2 05/03/22 23:58 BMI result Body Mass Index 16.9 Const: Other: General resting in bed, no acute distress.? Anicteric sclera Neck supple no JVD. CVS? regular rate rhythm, Respiratory lungs clear to auscultation, no respiratory distress, no wheeze, no rhonchi. Gastrointestinal abdomen soft, nontender, bowel sounds audible, no guarding , no rigidity. Extremities no edema.? Right hip dressing in place no drainage noted Neuro nonfocal , speech clear. Skin no rash Psych appropriate affect Objective Data Active Medications Acetaminophen (Acetaminophen 325 Mg Tablet) 650 mg PO Q6H PRN PRN Reason: Pain, Mild (Pain Scale 1-3) Albuterol/Ipratropium (Albuterol/Iprat 2.5/0.5mg 3 Ml Ampul.Neb) 3 ml INHALE RQ4H WHILE AWAKE PRN PRN Reason: sob Docusate Sodium (Docusate Sodium 100 Mg Capsule) 100 mg PO DAILY PRN PRN Reason: Constipation Enoxaparin Sodium (Enoxaparin Sodium 40 Mg/0.4 Ml Syringe) 40 mg SUBCUT Q24H [facility] Fluticasone/Vilanterol (Fluticasone/Vilanterol 200/25 Blst.W.Dev) 1 puff INHALE RDAILY [facility] Last Admin: 05/04/22 08:20 Dose: 1 puff Documented By: ISAIAH Cefazolin Sodium/Dextrose (Ancef) 2 gm in 50 mls @ 100 mls/hr IV POSTOP [facility] Morphine Sulfate (Morphine Sulfate 4 Mg/Ml Cartridge) 4 mg IVPUSH Q4H PRN; Protocol PRN Reason: Pain, Severe (Pain Scale 7-10) Last Admin: 05/04/22 08:41 Dose: 4 mg Documented By: FRANCISCO Nicotine (Nicotine 21 Mg Patch.Td24) 21 mg TRANSDERMA DAILY [facility] Last Admin: 05/04/22 08:40 Dose: 21 mg Documented By: FRANCISCO Ondansetron HCl (Ondansetron Hcl 4 Mg/2 Ml Vial) 4 mg IVPUSH Q8H PRN PRN Reason: Nausea and Vomiting Oxycodone HCl (Oxycodone Hcl Immed Release 5 Mg Tablet) 5 mg PO Q4H PRN PRN Reason: Pain, Moderate (Pain Scale 4-6 Pharmacy Consult (Consult Rx Perform Med Rec) 1 each MISCELLANE ONCE PRN PRN Reason: Consult order Sodium Chloride (0.9 % Sodium Chloride Flush 3 Ml Syringe) 3 ml IVFLUSH QSHIFT [facility] Last Admin: 05/04/22 08:44 Dose: 3 ml Documented By: FRANCISCO Labs 05/04/22 05:38 05/02/22 16:42 Labs: Laboratory Results - last 24 hr 05/04/22 05:38 MCV 90.8 MCH 30.0 MCHC 33.1 RDW 13.1 Plt Count 204 D MPV 11.1 Absolute Nucleated RBC 0.000 Nucleated RBC % (auto) 0.0 Assessment and Plan (1) Femoral neck fracture: Status: Acute Plan 72-year-old female with a PMH significant for COPD and active smoker of 1-pack per day?who presents to the ED after a mechanical fall at work. Pt will be admitted to the hospital for surgical repair of right femoral neck fracture. Right femoral neck fracture is status post right hip rey arthroplasty postoperative day 1 Good pain control, continue IV morphine, oxycodone and Tylenol Hematocrit dropped but stable Encouraged incentive spirometry. Continue physical therapy COPD no acute exacerbation at the time,Continue home inhaler, as needed DuoNeb Nicotine dependence Smokes 1 pack of cigarettes a day, on nicotine patch 21 mg daily, counseling provided Full Code DVT Prophylaxis: Lovenox subQ 40 mg Pt will require continued inpatient hospitalization for postop follow-up of right rey arthroplasty requiring physical therapy and intravenous pain medication Time Spent With Patient Time: Total time managing care of this patient today ____ minutes. Quality Stroke Does the patient have a stroke diagnosis?: No VTE Prior VTE?: No VTE Risk Level:: Medical - moderate - high VTE Device Contraindication: N/A - Device Ordered VTE Drug Contraindication: Treatment Not Indicated
--- NOTE | 2022-05-04 09:34 | HO.POSTANES ---
Post Anesthesia Evaluation Post Anesthesia Evaluation Vital Signs: Vital Signs Temp Pulse Resp BP Pulse Ox O2 Del Method O2 Flow Rate 05/04/22 08:21 18 05/03/22 23:58 98.7 F 66 14 119/57 L 96 Nasal Cannula 2 Anesthesia: General Endotracheal-GETA Mental Status: Awake Pain Control: Satisfactory Nausea/Vomiting: None Hydration: Adequate Anesthesia-Related Issues: No Anes. Related Issues
--- NOTE | 2022-05-04 09:50 | PM.PNORT ---
Subjective Subjective Date of Service: 05/04/22 Interval history: POD1 s/p right hip rey. No overnight events. Pain is managed. No additional complaints. She is resting in bed comfortably. Physical Exam Vital Signs: Vital Signs: Last Vital Signs Temp 98.7 F 05/03/22 23:58 Pulse 66 05/03/22 23:58 Resp 18 05/04/22 08:21 BP 119/57 L 05/03/22 23:58 Pulse Ox 96 05/03/22 23:58 O2 Del Method 05/03/22 23:58 O2 Flow Rate 2 05/03/22 23:58 BMI result Body Mass Index 16.9 Const: General: cooperative, healthy appearing and no acute distress Resp: Effort & Inspection: normal respiratory effort and able to speak in complete sentences Cardio: Rate: regular rate Peripheral pulses: Peripheral pulses 2+ throughout GI: Palpation (GI): Soft to palpation Skin: Lesions: no lesions Rashes: no rashes Extrem: Other: Right hip aquacel is c/d/i. able to dorsiflex and plantarflex. NVI. Procedures Date of Service Date of Service: 05/04/22 Progress Note: A&P Assessment and plan (1) Femoral neck fracture: Status: Acute Assessment and Plan: Continue pain mgmnt Begin Lovenox for dvt ppx Begin PT for right hip hemiarthroplasty - WBAT Sequentials were removed this morning on evaluation. Nurse notified to remain on. Dispo planning-Pending PT eval, pain mgmnt (2) S/P hip hemiarthroplasty: Status: Acute Time Spent With Patient Time: Total time managing care of this patient today ____ minutes. Quality Stroke Does the patient have a stroke diagnosis?: No VTE Prior VTE?: No VTE Risk Level:: Medical - moderate - high VTE Device Contraindication: N/A - Device Ordered VTE Drug Contraindication: Treatment Not Indicated
--- NOTE | 2022-05-04 11:08 | PC.NURSE ---
1015 pt oob with P.t. BECAME LIGHT HEADED AND HYPOTENSIVE 72/48 P 83 SITTING. BACK TO BED LYING FLAT. BP 108/56 O2 SAT 85 ROOM 93% 2L. PT REMAINED ALERT AND TALKING. dR. RAMIREZ MADE AWARE. [id number] ORDERED.
[2022-05-04] MEDS: 0.9 % Sodium Chloride 1,000 ML 100 ML IVCONT (11:29)
[2022-05-04] MEDS: Enoxaparin Sodium 40 MG/0.4 ML SYRINGE SUBCUT (11:34)
[2022-05-04] MEDS: oxyCODONE HCl Immed Release 5 MG TABLET PO (14:23)
--- NOTE | 2022-05-04 23:00 | PC.NURSE ---
pt had desated to 87% on ra, asymptomatic. 2l N/c applied.
[2022-05-05] MEDS: 0.9 % Sodium Chloride Flush 3 ML SYRINGE IVFLUSH ×4 (00:01→23:38)
[2022-05-05 05:07] VITALS: BP 151/72; PULSE 87; RESP 18; TEMP 37.1; O2SAT 95
[2022-05-05 07:29] VITALS: BP 107/59; PULSE 95; RESP 20; TEMP 36.2; O2SAT 96
[2022-05-05] MEDS: Morphine Sulfate 4 MG/ML CARTRIDGE IVPUSH (07:36)
[2022-05-05] MEDS: Nicotine 21 MG PATCH.TD24 TRANSDERMA (07:36)
[2022-05-05] MEDS: Fluticasone/Vilanterol 200/25 BLST.W.DEV 1 PUFF INHALE (07:55)
[2022-05-05 07:56] VITALS: PULSE 84; RESP 18; O2SAT 95
--- NOTE | 2022-05-05 09:27 | PM.PNORT ---
Subjective Subjective Date of Service: 05/05/22 Interval history: POD2 s/p right hip rey. Reportedly has a syncopal episode yesterday evening while trying to get up to use the commode. Medicine was notified and morphine dose was adjusted. Pain is managed. No additional complaints. She is resting in bed comfortably. Physical Exam Vital Signs: Vital Signs: Last Vital Signs Temp 97.2 F 05/05/22 07:29 Pulse 84 05/05/22 07:56 Resp 18 05/05/22 07:56 BP 107/59 L 05/05/22 07:29 Pulse Ox 96 05/05/22 07:29 O2 Del Method 05/05/22 07:29 O2 Flow Rate 2 05/05/22 07:29 BMI result Body Mass Index 16.9 Const: General: cooperative, healthy appearing and no acute distress Resp: Effort & Inspection: normal respiratory effort and able to speak in complete sentences Cardio: Rate: regular rate Peripheral pulses: Peripheral pulses 2+ throughout GI: Palpation (GI): Soft to palpation Skin: Lesions: no lesions Rashes: no rashes Extrem: Other: Right hip aquacel is c/d/i. able to dorsiflex and plantarflex. NVI. Procedures Date of Service Date of Service: 05/05/22 Progress Note: A&P Assessment and plan (1) S/P hip hemiarthroplasty: Status: Acute (2) Femoral neck fracture: Status: Acute Assessment and Plan: Continue pain mgmnt Continue Lovenox for dvt ppx Continue PT for right hip hemiarthroplasty - WBAT Sequentials were removed this morning on evaluation. Nurse notified to remain on. Dispo planning-Pending PT eval, pain mgmnt Time Spent With Patient Time: Total time managing care of this patient today ____ minutes. Quality Stroke Does the patient have a stroke diagnosis?: No VTE Prior VTE?: No VTE Risk Level:: Medical - moderate - high VTE Device Contraindication: N/A - Device Ordered VTE Drug Contraindication: Treatment Not Indicated
[2022-05-05 09:39] LABS: Hematocrit 37.3 % (37.0-47.0); Hemoglobin 12.7 g/dl (12.0-16.0)
[2022-05-05 10:46] VITALS: O2SAT 93
--- NOTE | 2022-05-05 11:41 | P.PNIM_ITS ---
Subjective Subjective Date of Service: 05/05/22 Interval History: Patient feeling better this morning, due to history of hallucination on oxycodone patient requiring IV morphine for pain control, denies nausea vomiting, no bowel movement since admission, denies fever chills, no chest pain, no palpitations, no shortness of breath no other acute issues overnight. Review of Systems Review of Systems: Yes all other systems are reviewed and are negative Physical Exam Vital Signs: Vital Signs: Last Vital Signs Temp 97.2 F 05/05/22 07:29 Pulse 84 05/05/22 07:56 Resp 18 05/05/22 07:56 BP 107/59 L 05/05/22 07:29 Pulse Ox 93 05/05/22 10:46 O2 Del Method 05/05/22 10:46 O2 Flow Rate 2 05/05/22 07:29 BMI result Body Mass Index 16.9 Const: Other: General resting in bed, no acute distress.? Anicteric sclera Neck supple no JVD. CVS? regular rate rhythm, Respiratory lungs clear to auscultation, no respiratory distress, no wheeze, no rhonchi. Gastrointestinal abdomen soft, nontender, bowel sounds audible, no guarding , no rigidity. Extremities no edema.? Right hip dressing in place no drainage noted Neuro nonfocal , speech clear. Skin no rash Psych appropriate affect Objective Data Active Medications Acetaminophen (Acetaminophen 325 Mg Tablet) 650 mg PO Q6H PRN PRN Reason: Pain, Mild (Pain Scale 1-3) Albuterol/Ipratropium (Albuterol/Iprat 2.5/0.5mg 3 Ml Ampul.Neb) 3 ml INHALE RQ4H WHILE AWAKE PRN PRN Reason: sob Docusate Sodium (Docusate Sodium 100 Mg Capsule) 100 mg PO DAILY PRN PRN Reason: Constipation Enoxaparin Sodium (Enoxaparin Sodium 40 Mg/0.4 Ml Syringe) 40 mg SUBCUT Q24H [facility] Last Admin: 05/04/22 11:34 Dose: 40 mg Documented By: FRANCISCO Fluticasone/Vilanterol (Fluticasone/Vilanterol 200/25 Blst.W.Dev) 1 puff INHALE RDAILY [facility] Last Admin: 05/05/22 07:55 Dose: 1 puff Documented By: HO.BLASCL Cefazolin Sodium/Dextrose (Ancef) 2 gm in 50 mls @ 100 mls/hr IV POSTOP [facility] Morphine Sulfate (Morphine Sulfate 4 Mg/Ml Cartridge) 4 mg IVPUSH Q4H PRN; Protocol PRN Reason: Pain, Severe (Pain Scale 7-10) Last Admin: 05/05/22 07:36 Dose: 4 mg Documented By: FRANCISCO Nicotine (Nicotine 21 Mg Patch.Td24) 21 mg TRANSDERMA DAILY [facility] Last Admin: 05/05/22 07:36 Dose: 21 mg Documented By: FRANCISCO Ondansetron HCl (Ondansetron Hcl 4 Mg/2 Ml Vial) 4 mg IVPUSH Q8H PRN PRN Reason: Nausea and Vomiting Oxycodone HCl (Oxycodone Hcl Immed Release 5 Mg Tablet) 5 mg PO Q4H PRN PRN Reason: Pain, Moderate (Pain Scale 4-6 Last Admin: 05/04/22 14:23 Dose: 5 mg Documented By: FRANCISCO Pharmacy Consult (Consult Rx Perform Med Rec) 1 each MISCELLANE ONCE PRN PRN Reason: Consult order Sodium Chloride (0.9 % Sodium Chloride Flush 3 Ml Syringe) 3 ml IVFLUSH QSHIFT [facility] Last Admin: 05/05/22 07:36 Dose: 3 ml Documented By: FRANCISCO Labs 05/05/22 09:33 05/02/22 16:42 Assessment and Plan (1) Femoral neck fracture: Status: Acute Plan 72-year-old female with a PMH significant for COPD and active smoker of 1-pack p er day?who presents to the ED after a mechanical fall at work. Pt will be admitted to the hospital for surgical repair of right femoral neck fracture. Right femoral neck fracture is status post right hip rey arthroplasty postoperative day 2 Good pain control, continue IV morphine, will reduce dose to 2 mg, DC oxycodone due to side effect of hallucination, will add Celebrex and Ultram as needed, continue Tylenol. Hematocrit dropped but stable Encouraged incentive spirometry. Continue physical therapy Add stool softeners COPD no acute exacerbation at the time,Continue home inhaler, as needed DuoNeb Nicotine dependence Smokes 1 pack of cigarettes a day, on nicotine patch 21 mg daily, counseling provided Full Code DVT Prophylaxis: Lovenox subQ 40 mg Pt will require continued inpatient hospitalization for postop follow-up of right rey arthroplasty requiring physical therapy and intravenous pain medications Time Spent With Patient Time: Total time managing care of this patient today ____ minutes. Quality Stroke Does the patient have a stroke diagnosis?: No VTE Prior VTE?: No VTE Risk Level:: Medical - moderate - high VTE Device Contraindication: N/A - Device Ordered VTE Drug Contraindication: Treatment Not Indicated
[2022-05-05] MEDS: traMADoL HCL 50 MG TABLET 25 MG PO (12:04)
[2022-05-05] MEDS: Docusate Sodium 100 MG CAPSULE PO (12:04)
[2022-05-05] MEDS: Enoxaparin Sodium 40 MG/0.4 ML SYRINGE SUBCUT (12:06)
[2022-05-05] MEDS: polyethylene glycoL 3350 17 GM POWD.PACK PO (12:30)
[2022-05-05 16:00] VITALS: BP 109/59; PULSE 95; RESP 20; TEMP 36.6; O2SAT 94
[2022-05-05] MEDS: Acetaminophen 325 MG TABLET 650 MG PO (16:41)
[2022-05-05 23:29] VITALS: BP 121/60; PULSE 76; RESP 18; TEMP 36.9; O2SAT 97
[2022-05-05] MEDS: Morphine Sulfate 4 MG/ML CARTRIDGE 2 MG IVPUSH (23:30)
[2022-05-06] MEDS: traMADoL HCL 50 MG TABLET 25 MG PO (05:45)
[2022-05-06 07:34] VITALS: PULSE 85; RESP 18; O2SAT 95
[2022-05-06] MEDS: Fluticasone/Vilanterol 200/25 BLST.W.DEV 1 PUFF INHALE (07:34)
[2022-05-06] MEDS: Celecoxib 100 MG CAPSULE PO (07:40)
[2022-05-06] MEDS: Docusate Sodium 100 MG CAPSULE PO (07:41)
[2022-05-06] MEDS: 0.9 % Sodium Chloride Flush 3 ML SYRINGE IVFLUSH ×2 (07:42→17:31)
[2022-05-06] MEDS: Nicotine 21 MG PATCH.TD24 TRANSDERMA (07:42)
[2022-05-06] MEDS: polyethylene glycoL 3350 17 GM POWD.PACK PO (07:42)
[2022-05-06 07:54] VITALS: BP 117/59; PULSE 81; RESP 18; TEMP 36.7; O2SAT 95
--- NOTE | 2022-05-06 10:57 | MHC.CM.PN ---
Addendum entered by Fany Salinas, RN 05/06/22 14:41: son, Liu called back. he is aware that [facility] is reviewing and asking for workmans comp information. Original Note: PATIENT IS AGREEABLE TO STR REFERRALS. CONTRACTED FACILITIES REFERRALS NOW PLACED. PATIENT WILL MAKE A DECISION ONCE SHE RECEIVES OFFERS SON. LIU, , AWARE OF PROGRESS AND ASKS FOR A CALL BACK TO CONFIRM DC PLAN. PATIENT AWARE AND AGREEABLE TO THIS
[2022-05-06] MEDS: Enoxaparin Sodium 40 MG/0.4 ML SYRINGE SUBCUT (11:14)
--- NOTE | 2022-05-06 13:26 | MHC.CLN ---
F/U DIET=REGULAR. DOES NOT WANT ENSURE SUPPLEMENT. SELECTS OWN MEALS, DISLIKES LARGE PORTIONS. QUALIFIES MODERATELY MALNOURISHED. CONTINUE REGULAR DIET AND PROVIDE FOOD PREFERENCES.
--- NOTE | 2022-05-06 13:29 | P.PNIM_ITS ---
Subjective Subjective Date of Service: 05/06/22 Interval History: Feeling better this morning pain well controlled complaining of bilateral lower extremity swelling, was sitting most of the day yesterday, very picky with food, tolerating diet with no nausea no vomiting no abdominal pain, no bowel movement PT recommend brief short-term rehab Review of Systems Review of Systems: Yes all other systems are reviewed and are negative Physical Exam Vital Signs: Vital Signs: Last Vital Signs Temp 98.0 F 05/06/22 07:54 Pulse 81 05/06/22 07:54 Resp 18 05/06/22 07:54 BP 117/59 L 05/06/22 07:54 Pulse Ox 95 05/06/22 07:54 O2 Del Method 05/06/22 07:54 O2 Flow Rate 2 05/05/22 07:29 BMI result Body Mass Index 16.9 Const: Other: General resting in bed, no acute distress.? Anicteric sclera Neck supple no JVD. CVS? regular rate rhythm, Respiratory lungs clear to auscultation, no respiratory distress, no wheeze, no rhonchi. Gastrointestinal abdomen soft, non tender, bowel sounds audible, no guarding , no rigidity. Extremities bilateral foot edema.? Right hip dressing in place, no drainage noted Neuro nonfocal , speech clear. Skin no rash Psych appropriate affect Objective Data Active Medications Acetaminophen (Acetaminophen 325 Mg Tablet) 650 mg PO Q6H PRN PRN Reason: Pain, Mild (Pain Scale 1-3) Last Admin: 05/05/22 16:41 Dose: 650 mg Documented By: PIERRE Albuterol/Ipratropium (Albuterol/Iprat 2.5/0.5mg 3 Ml Ampul.Neb) 3 ml INHALE RQ4H WHILE AWAKE PRN PRN Reason: sob Celecoxib (Celecoxib 100 Mg Capsule) 100 mg PO DAILY [facility] Last Admin: 05/06/22 07:40 Dose: 100 mg Documented By: ALEX Docusate Sodium (Docusate Sodium 100 Mg Capsule) 100 mg PO DAILY [facility] Last Admin: 05/06/22 07:41 Dose: 100 mg Documented By: ALEX Enoxaparin Sodium (Enoxaparin Sodium 40 Mg/0.4 Ml Syringe) 40 mg SUBCUT Q24H [facility] Last Admin: 05/06/22 11:14 Dose: 40 mg Documented By: ALEX Fluticasone/Vilanterol (Fluticasone/Vilanterol 200/25 Blst.W.Dev) 1 puff INHALE RDAILY [facility] Last Admin: 05/06/22 07:34 Dose: 1 puff Documented By: CALVIN Cefazolin Sodium/Dextrose (Ancef) 2 gm in 50 mls @ 100 mls/hr IV POSTOP [facility] Morphine Sulfate (Morphine Sulfate 4 Mg/Ml Cartridge) 2 mg IVPUSH Q4H PRN; Protocol PRN Reason: Pain, Severe (Pain Scale 7-10) Last Admin: 05/05/22 23:30 Dose: 2 mg Documented By: ALVARADO Nicotine (Nicotine 21 Mg Patch.Td24) 21 mg TRANSDERMA DAILY [facility] Last Admin: 05/06/22 07:42 Dose: 21 mg Documented By: ALEX Ondansetron HCl (Ondansetron Hcl 4 Mg/2 Ml Vial) 4 mg IVPUSH Q8H PRN PRN Reason: Nausea and Vomiting Pharmacy Consult (Consult Rx Perform Med Rec) 1 each MISCELLANE ONCE PRN PRN Reason: Consult order Polyethylene Glycol (Polyethylene Glycol 3350 17 Gm Powd.Pack) 17 gm PO DAILY [facility] Last Admin: 05/06/22 07:42 Dose: 17 gm Documented By: ALEX Sodium Chloride (0.9 % Sodium Chloride Flush 3 Ml Syringe) 3 ml IVFLUSH QSHIFT [facility] Last Admin: 05/06/22 07:42 Dose: 3 ml Documented By: ALEX Tramadol HCl (Tramadol Hcl 50 Mg Tablet) 25 mg PO Q6H PRN PRN Reason: Pain, Moderate (Pain Scale 4-6 Last Admin: 05/06/22 05:45 Dose: 25 mg Documented By: ALVARADO Labs 05/05/22 09:33 05/02/22 16:42 Assessment and Plan (1) Femoral neck fracture: Status: Acute Plan 72-year-old female with a PMH significant for COPD and active smoker of 1-pack per day?who presents to the ED after a mechanical fall at work. Pt will be admitted to the hospital for surgical repair of right femoral neck fracture. Right femoral neck fracture is status post right hip rey arthroplasty postoperative day 3 Good pain control, continue IV morphine 2 mg prn, Celebrex, Tylenol and Ultram as needed. Hematocrit dropped but stable Encouraged incentive spirometry. 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 Quality Stroke Does the patient have a stroke diagnosis?: No VTE Prior VTE?: No VTE Risk Level:: Medical - moderate - high VTE Device Contraindication: N/A - Device Ordered VTE Drug Contraindication: Treatment Not Indicated
[2022-05-06] MEDS: Milk of Magnesia 30 ML ORAL.SUSP PO (14:13)
[2022-05-06 16:00] VITALS: BP 105/53; PULSE 76; RESP 18; TEMP 36.3; O2SAT 92
[2022-05-07] VITALS: BP 136/69; PULSE 86; RESP 18; TEMP 36.3; O2SAT 94
[2022-05-07] MEDS: traMADoL HCL 50 MG TABLET 25 MG PO ×3 (00:12→18:02)
[2022-05-07] MEDS: 0.9 % Sodium Chloride Flush 3 ML SYRINGE IVFLUSH ×3 (00:13→22:01)
[2022-05-07 04:19] VITALS: BP 130/62; PULSE 78; RESP 18; TEMP 36; O2SAT 93
[2022-05-07 07:41] VITALS: BP 119/57; PULSE 71; RESP 12; TEMP 36.5; O2SAT 92
[2022-05-07] MEDS: Nicotine 21 MG PATCH.TD24 TRANSDERMA (07:54)
[2022-05-07] MEDS: Docusate Sodium 100 MG CAPSULE PO (07:55)
[2022-05-07] MEDS: Celecoxib 100 MG CAPSULE PO (07:55)
[2022-05-07] MEDS: polyethylene glycoL 3350 17 GM POWD.PACK PO (07:56)
[2022-05-07 09:05] VITALS: PULSE 78; RESP 18; O2SAT 92
[2022-05-07] MEDS: Fluticasone/Vilanterol 200/25 BLST.W.DEV 1 PUFF INHALE (09:05)
[2022-05-07] MEDS: Enoxaparin Sodium 40 MG/0.4 ML SYRINGE SUBCUT (10:49)
--- NOTE | 2022-05-07 14:12 | MHC.CM.PN ---
[facility] HAS STARTED THE AUTH PROCESS WITH [employer]
--- NOTE | 2022-05-07 14:22 | P.PNIM_ITS ---
Subjective Subjective Date of Service: 05/07/22 Interval History: Good pain control, decreased pain medication requirements, no bowel movement, leg edema resolved tolerating diet no nausea no vomiting no abdominal pain, no shortness of breath, no palpitation no other acute issues overnight.. Review of Systems Review of Systems: Yes all other systems are reviewed and are negative Physical Exam Vital Signs: Vital Signs: Last Vital Signs Temp 97.7 F 05/07/22 07:41 Pulse 78 05/07/22 09:05 Resp 18 05/07/22 09:05 BP 119/57 L 05/07/22 07:41 Pulse Ox 92 05/07/22 07:41 O2 Del Method 05/07/22 07:41 O2 Flow Rate 2 05/05/22 07:29 BMI result Body Mass Index 16.9 Const: Other: General resting in bed, no acute distress.? Anicteric sclera Neck supple no JVD. CVS? regular rate rhythm, Respiratory lungs clear to auscultation, no respiratory distress, no wheeze, no rhonchi. Gastrointestinal abdomen soft, non tender, bowel sounds audible, no guarding , no rigidity. Extremities bilateral foot edema resolved.? Right hip dressing in place, no drainage noted Neuro nonfocal , speech clear. Skin no rash Psych appropriate affect Objective Data Active Medications Acetaminophen (Acetaminophen 325 Mg Tablet) 650 mg PO Q6H PRN PRN Reason: Pain, Mild (Pain Scale 1-3) Last Admin: 05/05/22 16:41 Dose: 650 mg Documented By: PIERRE Albuterol/Ipratropium (Albuterol/Iprat 2.5/0.5mg 3 Ml Ampul.Neb) 3 ml INHALE RQ4H WHILE AWAKE PRN PRN Reason: sob Celecoxib (Celecoxib 100 Mg Capsule) 100 mg PO DAILY [facility] Last Admin: 05/07/22 07:55 Dose: 100 mg Documented By: GREY Docusate Sodium (Docusate Sodium 100 Mg Capsule) 100 mg PO DAILY [facility] Last Admin: 05/07/22 07:55 Dose: 100 mg Documented By: GREY Enoxaparin Sodium (Enoxaparin Sodium 40 Mg/0.4 Ml Syringe) 40 mg SUBCUT Q24H [facility] Last Admin: 05/07/22 10:49 Dose: 40 mg Documented By: HO.S-HAWLT Fluticasone/Vilanterol (Fluticasone/Vilanterol 200/25 Blst.W.Dev) 1 puff INHALE RDAILY [facility] Last Admin: 05/07/22 09:05 Dose: 1 puff Documented By: ANGUS Cefazolin Sodium/Dextrose (Ancef) 2 gm in 50 mls @ 100 mls/hr IV POSTOP [facility] Nicotine (Nicotine 21 Mg Patch.Td24) 21 mg TRANSDERMA DAILY [facility] Last Admin: 05/07/22 07:54 Dose: 21 mg Documented By: GREY Ondansetron HCl (Ondansetron Hcl 4 Mg/2 Ml Vial) 4 mg IVPUSH Q8H PRN PRN Reason: Nausea and Vomiting Pharmacy Consult (Consult Rx Perform Med Rec) 1 each MISCELLANE ONCE PRN PRN Reason: Consult order Polyethylene Glycol (Polyethylene Glycol 3350 17 Gm Powd.Pack) 17 gm PO DAILY [facility] Last Admin: 05/07/22 07:56 Dose: 17 gm Documented By: GREY Sodium Chloride (0.9 % Sodium Chloride Flush 3 Ml Syringe) 3 ml IVFLUSH QSHIFT [facility] Last Admin: 05/07/22 07:55 Dose: 3 ml Documented By: GREY Tramadol HCl (Tramadol Hcl 50 Mg Tablet) 25 mg PO Q6H PRN PRN Reason: Pain, Moderate (Pain Scale 4-6 Last Admin: 05/07/22 07:56 Dose: 25 mg Documented By: GREY Labs 05/05/22 09:33 05/02/22 16:42 Assessment and Plan (1) S/P hip hemiarthroplasty: Status: Acute Plan 72-year-old female with a PMH significant for COPD and active smoker of 1-pack per day?who presents to the ED after a mechanical fall at work. Pt will be admitted to the hospital for surgical repair of right femoral neck fracture. Right femoral neck fracture is status post right hip rey arthroplasty posto perative day 4 Good pain control, dc IV morphine, continue Celebrex, Tylenol and Ultram as needed. Hematocrit dropped but stable Encouraged incentive spirometry. Continue physical therapy Constipation on Colace and MiraLax , milk of Mag x1, since no bowel movement since 05/02 Moderate malnutrition Ensure supplement COPD no acute exacerbation at the time,Continue home inhaler, as needed DuoNeb Nicotine dependence Smokes 1 pack of cigarettes a day, on nicotine patch 21 mg daily, counseling pro vided Full Code DVT Prophylaxis: Lovenox subQ 40 mg Pt will require continued inpatient hospitalization for postop follow-up of right rey arthroplasty requiring physical therapy and safe discharge to rehab Time Spent With Patient Time: Total time managing care of this patient today ____ minutes. Quality Stroke Does the patient have a stroke diagnosis?: No VTE Prior VTE?: No VTE Risk Level:: Medical - moderate - high VTE Device Contraindication: N/A - Device Ordered VTE Drug Contraindication: Treatment Not Indicated
[2022-05-07 15:20] VITALS: BP 123/61; PULSE 86; RESP 18; TEMP 36.4; O2SAT 94
--- NOTE | 2022-05-07 15:52 | MHC.CM.PN ---
[facility] STATES THAT THIS COULD TAKE SOME TIME, IT IS [employer].
[2022-05-07] MEDS: Milk of Magnesia 30 ML ORAL.SUSP PO (17:59)
[2022-05-07 23:45] VITALS: BP 148/71; PULSE 80; RESP 18; TEMP 36.1; O2SAT 96
[2022-05-08] MEDS: traMADoL HCL 50 MG TABLET 25 MG PO ×3 (07:42→21:32)
[2022-05-08] MEDS: Celecoxib 100 MG CAPSULE PO (07:42)
[2022-05-08] MEDS: Acetaminophen 325 MG TABLET 650 MG PO (07:43)
[2022-05-08] MEDS: Nicotine 21 MG PATCH.TD24 TRANSDERMA (07:44)
[2022-05-08] MEDS: 0.9 % Sodium Chloride Flush 3 ML SYRINGE IVFLUSH ×2 (07:45→16:11)
[2022-05-08 08:00] VITALS: PULSE 87; RESP 18; TEMP 36.7; O2SAT 94
[2022-05-08] MEDS: Enoxaparin Sodium 40 MG/0.4 ML SYRINGE SUBCUT (10:58)
--- NOTE | 2022-05-08 13:43 | MHC.CM.PN ---
Addendum entered by Fany Salinas RN 05/08/22 16:19: [employer] AND FAMILY HAVE CONVINCED PATIENT TO DC TO [facility] WAS NOT ABLE TO GIVE A TIME FOR TRANSFER (WAS NOT RESPONDING) PLAN WILL BE FRIDAY TO [facility]. WILL NEED RAPID SALAS [employer] AWARE Original Note: PATIENT WANTS TO GO HOME WITH SERVICES INSTEAD OF REHAB STAY. CALL FROM [facility] [phone] UPDATED NOTES FAXED TO SHON[facility] @ [phone]
--- NOTE | 2022-05-08 13:56 | W.MHC.F2F ---
Service Date Service Date: 05/08/22 Encounter Date of encounter: 05/08/22 Reasons for Services Signs and symptoms assessed: Status post right hip rey arthroplasty/pain with ambulation Reason for occupational therapy: home safety and mobility, restore joint function and gait/transfer training Homebound: Leaving the home is medically contraindicated at this time without the asist of a device and/or another person due th the listed conditions above and below. Reason homebound: pain with ambulation Certification: Based on the above findings, I certify that this patient is confined to the home and needs intermittent custodial care, physical therapy and/or speech therapy, or continues to need occupational therapy. The patient is under my care, and I have initiated the establishment of the plan of care. The patient will be followed by a physician who will periodically review the plan of care. Time Spent With Patient Time: Total time managing care of this patient today ____ minutes.
--- NOTE | 2022-05-08 13:58 | P.DS_ITS ---
DS: Providers Provider Date of Service: 05/08/22 Date of admission: 05/02/22 22:14 Primary care physician: Anthony Mendez MD Consults: 05/02/22 18:11 Consult to Orthopedics Stat Consulting Provider: Ranjit Merrill Reason for consultation: right hip fracture DS: Diagnosis Discharge Diagnosis (1) S/P hip hemiarthroplasty: Status: Acute DS: Summary Hospital Course Hospital Course: Date of Service: 05/02/22 Attending physician on admission: Hayden Guzmán Chief Complaint: Right hip pain Pt is a 72-year-old female with a PMH significant for COPD and active smoker of 1-pack per day?who presents to the ED after a mechanical fall at work. Pt states she was at [employer] when she tripped over a box and landed on her right hip. Endorses hitting her head but no LOC. Pt was unable to support her weight or walk after fall. She only reports severe right hip pain. Denies headache, vision changes, dizziness/lightheadedness. No chest pain/pressure, palpitations.? Denies shortness of breath, nausea, vomiting, diarrhea, abdominal pain.? No numbness or tingling in extremities. In the ED patient hemodynamically stable and labs were largely unremarkable. CXR showed no acute cardiopulmonary process, but mild coarsened interstitial markings.? X-ray of hip and pelvis showed acute, mildly displaced right subcapital femoral neck fracture. CT of head and cervical spine?showed no acute intracranial pathology and no evidence of acute cervical spine fracture or traumatic subluxation.? Patient treated with ondansertron and pain management. Pt will be admitted to the hospital for surgical repair of right femoral neck fracture. Hospital course 72-year-old female with a PMH significant for COPD and active smoker of 1-pack per day?who presents to the ED after a mechanical fall at work. Pt will be admitted to the hospital for surgical repair of right femoral neck fracture. Admitted to medical floor due to Right femoral neck fracture is status post right hip rey arthroplasty postoperatively doing well with good pain control, hematocrit is stable patient participated well with physical therapy ambulating with walker, recommend to continue?Celebrex, Tylenol and Ultram as needed, continue physical therapy and stool softeners as directed. Constipation resolved continue Colace and MiraLax. Moderate malnutrition recommend high-protein diet and Ensure supplement COPD no acute exacerbation noted continue home inhalers Nicotine dependence strongly recommend to abstain from smoking continue nicotine patch 21 mg daily. Time Spent with Patient Time attestation: Total time managing care of this patient today ____ minutes. Discharge coordination time: Greater than 30 minutes Quality: Safe Use of Opioids Does Pt have an Active Cancer Diagnosis on the Problem List?: No Quality: Stroke Does the patient have a stroke diagnosis?: No Physical Exam Vital Signs: Vital Signs: Last Vital Signs Temp 98.1 F 05/08/22 08:00 Pulse 87 05/08/22 08:00 Resp 18 05/08/22 08:00 BP 148/71 H 05/07/22 23:45 Pulse Ox 94 05/08/22 08:00 O2 Del Method 05/08/22 08:00 O2 Flow Rate 2 05/05/22 07:29 BMI result Body Mass Index 16.9 Const: Other: General resting in bed, no acute distress.? Anicteric sclera Neck supple no JVD. CVS? regular rate rhythm, Respiratory lungs clear to auscultation, no respiratory distress, no wheeze, no rhonchi. Gastrointestinal abdomen soft, non tender, bowel sounds audible, no guarding , no rigidity. Extremities bilateral foot edema resolved.? Right hip dressing in place, no drainage noted Neuro nonfocal , speech clear. Skin no rash Psych appropriate affect DS: Data Data Completed and Pending Completed studies during hospitalization [Text1]: Pending at discharge 05/03/22 12:55 Surgical [PTH] Routine Discharge Plan Discharge Anticipated Discharge Date/Time: 05/08/22 13:48 Patient Disposition: Home Health Service Discharge Diagnosis: Status post right hip rey arthroplasty Constipation Moderate malnutrition Referrals: Allison Rosenbaum PA-C [Physician Brand Designer] - 05/20/22 12:45 pm (05/20/22 12:45) Anthony Mendez MD [Primary Care Provider] - 1 Week Discharge Medications: New nicotine 21 mg/24 hr Patch 24 Hour 21 mg transdermal DAILY Qty: 28 0RF docusate sodium 100 mg Capsule 100 mg PO DAILY Qty: 30 0RF celecoxib 100 mg Capsule 100 mg PO DAILY Qty: 30 0RF polyethylene glycol 3350 17 gram Powder In Packet 17 g PO DAILY Qty: 30 0RF tramadol 50 mg Tablet 25 mg PO Q6H PRN (Reason: Pain, Moderate (Pain Scale 4-6) Qty: 20 0RF enoxaparin 40 mg/0.4 mL Syringe 40 mg subcut Q24H 35 Days Qty: 14 0RF Rx Instructions: Take Lovenox through 06/12/22 Continued budesonide-formoterol [Symbicort] 160-4.5 mcg/actuation Hfa Aerosol Inhaler 2 puff INHALATION BID Discharge Orders: Discharge Order (Routine); Ordered 05/08/22 Ordered By: eRnato Trujillo Diet: Advance to usual diet Activity on Discharge: As tolerated Stand Alone Forms: Patient Portal Discharge page Activity Restrictions/Additional Instructions: Physical Therapy for total hip arthroplasty: posterior precautions, gait training, ROM, strength WBAT Limit stair climbing No showering, no tub bath-keep dressing clean, dry and intact No driving x 6 weeks Continue Lovenox x 6 weeks Follow up with [facility] in 2 weeks Care Plan Goals: Take Ultram as needed, take stool softeners as prescribed hold for diarrhea Health Concerns: Continue home inhalers/abstain from smoking continue nicotine patch Plan of Treatment: Outpatient follow-up with primary care physician call for appointment, follow up with orthopedic surgeon as above Assessment: As above
--- NOTE | 2022-05-08 15:27 | P.PNIM_ITS ---
Subjective Subjective Date of Service: 05/08/22 Interval History: Feeling better good pain control had a bowel movement last night trying to eat better, no nausea no vomiting no abdominal pain, no lightheadedness or dizziness. Review of Systems Review of Systems: Yes all other systems are reviewed and are negative Physical Exam Vital Signs: Vital Signs: Last Vital Signs Temp 98.1 F 05/08/22 08:00 Pulse 87 05/08/22 08:00 Resp 18 05/08/22 08:00 BP 148/71 H 05/07/22 23:45 Pulse Ox 94 05/08/22 08:00 O2 Del Method 05/08/22 08:00 O2 Flow Rate 2 05/05/22 07:29 BMI result Body Mass Index 16.9 Const: Other: General resting in bed, no acute distress.? Anicteric sclera Neck supple no JVD. CVS? regular rate rhythm, Respiratory lungs clear to auscultation, no respiratory distress, no wheeze, no rhonchi. Gastrointestinal abdomen soft, non tender, bowel sounds audible, no guarding , no rigidity. Extremities bilateral foot edema resolved.? Right hip dressing in place, no drainage noted Neuro nonfocal , speech clear. Skin no rash Psych appropriate affect Objective Data Active Medications Acetaminophen (Acetaminophen 325 Mg Tablet) 650 mg PO Q6H PRN PRN Reason: Pain, Mild (Pain Scale 1-3) Last Admin: 05/08/22 07:43 Dose: 650 mg Documented By: FRANCISCO Albuterol/Ipratropium (Albuterol/Iprat 2.5/0.5mg 3 Ml Ampul.Neb) 3 ml INHALE RQ4H WHILE AWAKE PRN PRN Reason: sob Celecoxib (Celecoxib 100 Mg Capsule) 100 mg PO DAILY [facility] Last Admin: 05/08/22 07:42 Dose: 100 mg Documented By: FRANCISCO Docusate Sodium (Docusate Sodium 100 Mg Capsule) 100 mg PO DAILY [facility] Last Admin: 05/08/22 07:44 Dose: Not Given Documented By: FRANCISCO Non-Admin Reason: Patient Refused Enoxaparin Sodium (Enoxaparin Sodium 40 Mg/0.4 Ml Syringe) 40 mg SUBCUT Q24H [facility] Last Admin: 05/08/22 10:58 Dose: 40 mg Documented By: KISHANRACMARIANO Fluticasone/Vilanterol (Fluticasone/Vilanterol 200/25 Blst.W.Dev) 1 puff INHALE RDAILY [facility] Last Admin: 05/08/22 07:51 Dose: Not Given Documented By: ISAIAH Non-Admin Reason: Med Not Available Cefazolin Sodium/Dextrose (Ancef) 2 gm in 50 mls @ 100 mls/hr IV POSTOP [facility] Nicotine (Nicotine 21 Mg Patch.Td24) 21 mg TRANSDERMA DAILY [facility] Last Admin: 05/08/22 07:44 Dose: 21 mg Documented By: FRANCISCO Ondansetron HCl (Ondansetron Hcl 4 Mg/2 Ml Vial) 4 mg IVPUSH Q8H PRN PRN Reason: Nausea and Vomiting Pharmacy Consult (Consult Rx Perform Med Rec) 1 each MISCELLANE ONCE PRN PRN Reason: Consult order Polyethylene Glycol (Polyethylene Glycol 3350 17 Gm Powd.Pack) 17 gm PO DAILY [facility] Last Admin: 05/08/22 07:44 Dose: Not Given Documented By: FRANCISCO Non-Admin Reason: Patient Condition Contraindication Sodium Chloride (0.9 % Sodium Chloride Flush 3 Ml Syringe) 3 ml IVFLUSH QSHIFT [facility] Last Admin: 05/08/22 07:45 Dose: 3 ml Documented By: FRANCISCO Tramadol HCl (Tramadol Hcl 50 Mg Tablet) 25 mg PO Q6H PRN PRN Reason: Pain, Moderate (Pain Scale 4-6 Last Admin: 05/08/22 07:42 Dose: 25 mg Documented By: FRANCISCO Labs 05/05/22 09:33 05/02/22 16:42 Assessment and Plan (1) S/P hip hemiarthroplasty: Status: Acute Plan 72-year-old female with a PMH significant for COPD and active smoker of 1-pack per day?who presents to the ED after a mechanical fall at work. Pt will be admitted to the hospital for surgical repair of right femoral neck fracture. Right femoral neck fracture is status post right hip rey arthroplasty postoperatively? doing well with good pain control, hematocrit is stable cont. physical therapy ,Celebrex, Tylenol and Ultram as needed Constipation resolved continue Colace and MiraLax. Moderate malnutrition recommend high-protein diet and Ensure supplement COPD no acute exacerbation noted continue home inhalers Nicotine dependence strongly recommend to abstain from smoking continue nicotine patch 21 mg daily. DVT prophylaxis on Lovenox Patient need continued inpatient hospitalization for safe discharge to rehab facility Time Spent With Patient Time: Total time managing care of this patient today ____ minutes. Quality Stroke Does the patient have a stroke diagnosis?: No VTE Prior VTE?: No VTE Risk Level:: Medical - moderate - high VTE Device Contraindication: N/A - Device Ordered VTE Drug Contraindication: Treatment Not Indicated
--- NOTE | 2022-05-08 15:45 | MHC.CLN ---
F/U DIET=REGULAR. PER MD, HIGH PROTEIN DIET WITH ENSURE BID. SUPPLEMENT PROVIDES ADDITIONAL 700 KCALS, 40 G PROTEIN. INTAKE VARIABLE, WITH MOST MEALS 50-75%. CONTINUE REGULAR DIET, SUPPLEMENT, AND PROVIDE FOOD PREFERENCES ABLE.
[2022-05-08 16:00] VITALS: BP 113/59; PULSE 74; RESP 17; TEMP 37.3; O2SAT 95
[2022-05-08 20:24] VITALS: BP 126/59; PULSE 74; RESP 17; TEMP 36.6; O2SAT 93
[2022-05-08 23:48] VITALS: BP 114/57; PULSE 65; RESP 18; TEMP 36.6; O2SAT 95
[2022-05-09] MEDS: 0.9 % Sodium Chloride Flush 3 ML SYRINGE IVFLUSH ×2 (00:25→08:22)
[2022-05-09 04:21] VITALS: BP 125/65; PULSE 75; RESP 18; TEMP 36.7; O2SAT 94
[2022-05-09 07:17] VITALS: BP 129/60; PULSE 72; RESP 18; TEMP 36.6; O2SAT 94
[2022-05-09] MEDS: Nicotine 21 MG PATCH.TD24 TRANSDERMA (08:19)
[2022-05-09] MEDS: Acetaminophen 325 MG TABLET 650 MG PO (08:19)
[2022-05-09] MEDS: Celecoxib 100 MG CAPSULE PO (08:20)
[2022-05-09] MEDS: traMADoL HCL 50 MG TABLET 25 MG PO (08:20)
[2022-05-09 08:44] LABS: MANUAL DIFF FLAG NO
[2022-05-09 08:49] LABS: Basophils Percent Auto 0.4 % (0-2); Eosinophils Absolute Auto 0.3 X10*3/uL (0.0-0.4); Eosinophils Percent Auto 3.1 % (0-4); Hematocrit 37.6 % (37.0-47.0); Hemoglobin 12.2 g/dl (12.0-16.0); Imm Gran Abs Auto 0.03 X10*3/uL (0.00-0.03); Imm Gran Pct Auto 0.4 % (0.0-0.4); Lymphocytes Absolute Auto 2.4 X10*3/uL (1.2-4.9); Lymphocytes Percent Auto 28.5 % (20-40); Mean Corpuscular HGB Conc 32.4 g/dl (31.0-35.0); Mean Corpuscular Hemoglobin 29.3 pg (27.0-33.0); Mean Corpuscular Volume 90.4 fL (80.0-98.0); Mean Platelet Volume 10.2 fL (9.4-12.3); Monocytes Absolute Auto 0.6 X10*3/uL (0.1-1.2); Monocytes Percent Auto 7.6 % (2-11); Platelet Count 373 X10*3/uL (160-400); Red Blood Count 4.16 X10*6/uL (4.20-5.50); Red Cell Distribution Width 12.4 % (11.0-16.0); White Blood Count 8.3 X10*3/uL (4.8-10.8)
[2022-05-09 09:39] LABS: COVID-19 Test Negative (Negative); IDNOW Serial# BCCEAD1C
[2022-05-09] MEDS: Enoxaparin Sodium 40 MG/0.4 ML SYRINGE SUBCUT (10:36)
--- NOTE | 2022-05-09 10:40 | PM.DS ---
DS: Providers Provider Date of Service: 05/09/22 Date of admission: 05/02/22 22:14 Primary care physician: Anthony Mendez MD Consults: 05/02/22 18:11 Consult to Orthopedics Stat Consulting Provider: Ranjit Merrill Reason for consultation: right hip fracture DS: Diagnosis Discharge Diagnosis (1) S/P hip hemiarthroplasty: Status: Acute DS: Summary Hospital Course Hospital Course: Date of Service: 05/02/22 Attending physician on admission: Hayden Guzmán Chief Complaint: Right hip pain Pt is a 72-year-old female with a PMH significant for COPD and active smoker of 1-pack per day?who presents to the ED after a mechanical fall at work. Pt states she was at [email or web address] when she tripped over a box and landed on her right hip. Endorses hitting her head but no LOC. Pt was unable to support her weight or walk after fall. She only reports severe right hip pain. Denies headache, vision changes, dizziness/lightheadedness. No chest pain/pressure, palpitations.? Denies shortness of breath, nausea, vomiting, diarrhea, abdominal pain.? No numbness or tingling in extremities. In the ED patient hemodynamically stable and labs were largely unremarkable. CXR showed no acute cardiopulmonary process, but mild coarsened interstitial markings.? X-ray of hip and pelvis showed acute, mildly displaced right subcapital femoral neck fracture. CT of head and cervical spine?showed no acute intracranial pathology and no evidence of acute cervical spine fracture or traumatic subluxation.? Patient treated with ondansertron and pain management. Pt will be admitted to the hospital for surgical repair of right femoral neck fracture. Hospital course 72-year-old female with a PMH significant for COPD and active smoker of 1-pack per day?who presents to the ED after a mechanical fall at work. Pt will be admitted to the hospital for surgical repair of right femoral neck fracture. Admitted to medical floor due to Right femoral neck fracture is status post right hip rey arthroplasty postoperatively doing well with good pain control, hematocrit is stable patient participated well with physical therapy ambulating with walker, recommend to continue?Celebrex, Tylenol and Ultram as needed, continue physical therapy and stool softeners as directed. Constipation resolved continue Colace and MiraLax. Moderate malnutrition recommend high-protein diet and Ensure supplement COPD no acute exacerbation noted continue home inhalers Nicotine dependence strongly recommend to abstain from smoking continue nicotine patch 21 mg daily. Patient is being discharged to rehab facility. Time Spent with Patient Time attestation: Total time managing care of this patient today ____ minutes. Discharge coordination time: Greater than 30 minutes Quality: Safe Use of Opioids Does Pt have an Active Cancer Diagnosis on the Problem List?: No Quality: Stroke Does the patient have a stroke diagnosis?: No Physical Exam Vital Signs: Vital Signs: Last Vital Signs Temp 97.9 F 05/09/22 07:17 Pulse 72 05/09/22 07:17 Resp 18 05/09/22 07:17 BP 129/60 05/09/22 07:17 Pulse Ox 94 05/09/22 07:17 O2 Del Method 05/09/22 07:17 O2 Flow Rate 2 05/05/22 07:29 BMI result Body Mass Index 16.9 Const: Other: General resting in bed, no acute distress.? Anicteric sclera Neck supple no JVD. CVS? regular rate rhythm, Respiratory lungs clear to auscultation, no respiratory distress, no wheeze, no rhonchi. Gastrointestinal abdomen soft, non tender, bowel sounds audible, no guarding , no rigidity. Extremities bilateral foot edema resolved.? Right hip dressing in place, no drainage noted Neuro nonfocal , speech clear. Skin no rash Psych appropriate affect DS: Data Data Completed and Pending Completed studies during hospitalization [Text1]: Pending at discharge 05/03/22 12:55 Surgical [PTH] Routine Labs on day of discharge: Laboratory Results - last 24 hr 05/09/22 05/09/22 08:36 09:00 WBC 8.3 RBC 4.16 L Hgb 12.2 Hct 37.6 MCV 90.4 MCH 29.3 MCHC 32.4 RDW 12.4 Plt Count 373 D MPV 10.2 Immature Gran % (Auto) 0.4 Neut % (Auto) 60.0 Lymph % (Auto) 28.5 Maverick % (Auto) 7.6 Eos % (Auto) 3.1 Baso % (Auto) 0.4 Lymph # (Auto) 2.4 Maverick # (Auto) 0.6 Eos # (Auto) 0.3 Baso # (Auto) 0.0 Abs Immat Gran (auto) 0.03 Absolute Neuts (auto) 5.0 Absolute Nucleated RBC 0.000 Nucleated RBC % (auto) 0.0 COVID-19 (SUDEEP) Negative COVID-19 Clin Com See Note Discharge Plan Discharge Anticipated Discharge Date/Time: 05/09/22 10:03 Patient Disposition: Xfer SNF Discharge Diagnosis: Status post right hip rey arthroplasty Constipation Moderate malnutrition Referrals: Allison Rosenbaum PA-C [Physician Grounds Restoration Specialist] - 05/20/22 12:45 pm (05/20/22 12:45) Anthony Mendez MD [Primary Care Provider] - 1 Week Discharge Medications: New nicotine 21 mg/24 hr Patch 24 Hour 21 mg transdermal DAILY Qty: 28 0RF docusate sodium 100 mg Capsule 100 mg PO DAILY Qty: 30 0RF celecoxib 100 mg Capsule 100 mg PO DAILY Qty: 30 0RF polyethylene glycol 3350 17 gram Powder In Packet 17 g PO DAILY Qty: 30 0RF tramadol 50 mg Tablet 25 mg PO Q6H PRN (Reason: Pain, Moderate (Pain Scale 4-6) Qty: 20 0RF enoxaparin 40 mg/0.4 mL Syringe 40 mg subcut Q24H 35 Days Qty: 14 0RF Rx Instructions: Take Lovenox through 06/12/22 acetaminophen 325 mg Tablet 650 mg PO Q6H PRN (Reason: Pain, Mild (Pain Scale 1-3)) Qty: 20 0RF Continued budesonide-formoterol [Symbicort] 160-4.5 mcg/actuation Hfa Aerosol Inhaler 2 puff INHALATION BID Discharge Orders: Discharge Order (Routine); Ordered 05/09/22 Ordered By: Renato Trujillo Diet: Advance to usual diet Activity on Discharge: As tolerated Stand Alone Forms: Patient Portal Discharge page Activity Restrictions/Additional Instructions: Physical Therapy for total hip arthroplasty: posterior precautions, gait training, ROM, strength WBAT Limit stair climbing No showering, no tub bath-keep dressing clean, dry and intact No driving x 6 weeks Continue Lovenox x 6 weeks Follow up with [facility] in 2 weeks Care Plan Goals: Take Ultram as needed, take stool softeners as prescribed hold for diarrhea Health Concerns: Continue home inhalers/abstain from smoking continue nicotine patch Plan of Treatment: Outpatient follow-up with primary care physician call for appointment, follow up with orthopedic surgeon as above Assessment: As above
--- NOTE | 2022-05-09 11:08 | MHC.CM.PN ---
Addendum entered by Adriana Salazar 05/09/22 11:19: DC SUMMARY FAXED TO [facility] AT [facility] [phone] Original Note: PT WILL DC TO [facility] TODAY VIA DEWAYNE MITCHELL PT AWARE AND ASKS THAT SONS BE NOTIFIED CM CALLED PTS SON, JAMIE [phone] HE IS AWARE AND WILL NOTIFY BROTHER DYLAN PT WILL DC AT 1200 HOURS
== END 2022-05-09 13:56 | disposition skilled nursing facility (03) | DRG 522 ==
LOC: HO.ED 18:13 → HO.EDOVER 22:31 → HO.S3 23:24
PROVIDERS: Nurse Practitioner Family; Orthopaedic Surgery; Physician Assistant; Admitting Provider Student in an Organized Health Care Education/Training Program; Emergency Provider Emergency Medicine; PCP Internal Medicine; Visit Provider Hospitalist
PROC: 0SRR0JA Replacement of Right Hip Joint, Femoral Surface with Synthetic Substitute, Uncemented, Open Approach (ICD-10-PCS; CPT 27125; principal; 2022-05-03 12:00)
DX: S72.011A Unspecified intracapsular fracture of right femur, initial encounter for closed fracture (principal); E44.0 Moderate protein-calorie malnutrition; Z68.1 Body mass index [BMI] 19.9 or less, adult; K59.00 Constipation, unspecified; W01.0XXA Fall on same level from slipping, tripping and stumbling without subsequent striking against object, initial encounter; F17.210 Nicotine dependence, cigarettes, uncomplicated; J44.9 Chronic obstructive pulmonary disease, unspecified; Z20.822 Contact with and (suspected) exposure to COVID-19; Z71.6 Tobacco abuse counseling; Z88.5 Allergy status to narcotic agent; Z79.899 Other long term (current) drug therapy
CPT/HCPCS: 36415; 70450; 71045; 72125; 73502; 80048; 80076; 85014; 85018; 85025; 85027; 85610; 85730; 86850; 86900; 86901; 87635; 88304; 88305; 88311; 93005; 94640; 97110; 97116; 97162; 97166; 97535; 99285; C1758; C1776; J0131; J0690; J1100; J1170; J1650; J1885; J2270; J2370; J2405; J2795; J3010

== ENCOUNTER 2022-05-20 12:27 | Outpatient (REF) | payer OTHER, MEDICARE, SELFPAY ==
--- NOTE | ~2022-05-20 | XR_ITS ---
EXAMINATION: XR PELVIS CLINICAL INFORMATION: Hip pain. COMPARISON: Right hip radiographs dated 05/02/2022. TECHNIQUE: 2 AP views of the pelvis is submitted. FINDINGS: There is bony demineralization. There is an intact right hip total arthroplasty. The left acetabular joint space is well-maintained. There is old osteitis pubis. The sacroiliac joints are symmetric and well-maintained. No fracture or dislocation is seen. There is no foreign body. There are are right upper lateral thigh skin pj. XR/XR pelvis 1-2V IMPRESSION: An intact right hip total arthroplasty is now seen, without hardware failure, loosening or periprosthetic fracture. No unusual degenerative change is seen of the left hip.
== END 2022-05-20 12:28 | disposition home or self-care (01) ==
LOC: HO.HOSX 12:27
PROVIDERS: PCP Internal Medicine; Visit Provider Orthopaedic Surgery
DX: Z96.641 Presence of right artificial hip joint (principal)
CPT/HCPCS: 72170

== ENCOUNTER 2022-06-17 14:23 | Outpatient (REF) | payer OTHER, MEDICARE, SELFPAY ==
--- NOTE | ~2022-06-17 | XR_ITS ---
EXAMINATION: XR PELVIS CLINICAL INFORMATION: Pain. COMPARISON: None available. TECHNIQUE: AP view of the pelvis. FINDINGS: There is bony demineralization. There is an intact right hip total arthroplasty, without hardware failure or loosening seen. The left hip joint is well-maintained, without unusual degenerative change. The left femoral head appears smooth. The bilateral sacroiliac joints are symmetric. There is old osteitis pubis. No fracture or dislocation is seen. There is no foreign body. XR/XR pelvis 1-2V IMPRESSION: 1. There is an intact right hip total arthroplasty. 2. No unusual degenerative change is seen of the left hip.
== END 2022-06-17 14:24 | disposition home or self-care (01) ==
LOC: HO.HOSX 14:23
PROVIDERS: Visit Provider Physician Assistant
DX: M25.551 Pain in right hip (principal); Z96.641 Presence of right artificial hip joint; Z47.1 Aftercare following joint replacement surgery
CPT/HCPCS: 72170

== ENCOUNTER 2022-07-19 14:00 | Outpatient (RCR) | payer OTHER, MEDICARE, SELFPAY ==
--- NOTE | 2022-06-27 08:22 | MHC.PT.EP ---
[facility] [place] Office [place] Office [place] Office [address] Prudencio Duran [address] [phone] F: [phone] F: [phone] F: [phone] F: [phone] Physical Therapy Plan of Care Date of Evaluation: Date of Surgery: 05/03/22 Diagnosis: This is a 72 yo female presenting to skilled PT with a script for s/p hip arthroplasty Assessment: Patient is post op for her right hip hemiarthroplasty performed on 05/03/22. 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 Endorses hitting her head but no LOC, she was unable to support her weight or walk after fall. She went to [facility] where she had an X-ray of hip and pelvis which showed acute, mildly displaced right sub capital femoral neck fracture. CT of head and cervical spine?showed no acute intracranial pathology and no evidence of acute cervical spine fracture or traumatic subluxation. She was deemed appropriate for surgery. She went to rehab for a day but did not feel like she was getting appropriate care and left. She proceeded to have home PT up until last week (does report an incident with her back over the weekend but otherwise has not had any pain). She was given an HEP of kitchen sink exercises, squats and reports doing a lot of walking. She continues to report no pain today, no AD needed and does not need any pain medication. She reports limited in getting on/off the ground, balance and strength. She also reports a lack of confidence. The patient is still out of work but wants to return KEKE. She has returned to normal daily home return and has been driving as well. She returns to surgeon again in about a month. Assessment reveals no hip pain however did injure low back a few days ago. Patient demos decreased hip and lumbar ROM, strength of quads, gluts and core. She denies TTP but does endorse fear and decreased balance. Based on functional limitations, impaired QOL and patient safety, she is a great candidate for skilled PT 2x/wk for 6wks. Frequency and Duration: The patient will be seen 2x/wk for 6wks Short Term Goals: I in new HEP in 2 wks Patient will be able to perform 10 SLR with no lag in 3wks Patient will undergo balance assessment/challenge in 3ks Geodesist Goals: Improve LEFs by at least 5 points in 6wks Return to work in full if cleared by surgeon in 6wks Improve hip strength by at least 1 grade in 6wks Patient report 75% improvement in confidence in 6wks Treatment Plan: Modalities to reduce pain, spasms and effusion. Manual therapy to restore motion and function. Therapeutic exercise to improve strength and flexibility. Neuromuscular re-education for posture and balance. Therapeutic activities to return to functional activities of daily living. Electronically signed by: Medina Camacho PT Please sign and return to therapist. Thank you for your referral.
--- NOTE | 2022-08-21 09:32 | MHC.PT.DC ---
[facility] [place] Office [place] Office [place] Office [address] Prudencio Duran [address] [phone] F: [phone] F: [phone] F: [phone] F: [phone] Physical Therapy Discharge Report Diagnosis: This is a 72 yo female presenting to skilled PT with a script for s/p hip arthroplasty Date of Surgery: 05/03/22 Date of Evaluation: 06/25/22 Date of Discharge: 08/21/22 Treatments to Date: 7 Cancellations to Date: 1 No Shows to Date: 0 Discharge Status: Achieved Goals Improved Function Independent with HEP Patient Elected to Stop Discharge Summary: 07/19/22: Patient is doing well, has returned to work in full, understands HEP and safety with precautions. She has some general achiness from work related positions but no increase in pain. At this time she is I in her program and I educated her that I will keep her chart open for 30 days in case she wishes to return. Chart was closed after 30 days and DC'd to HEP Electronically signed by: Medina Camacho, PT Please sign and return to therapist. Thank you for your referral.
== END 2022-08-21 09:32 | disposition home or self-care (01) ==
LOC: HO.PTCHIC 14:00
PROVIDERS: Visit Provider Physician Assistant
DX: Z96.641 Presence of right artificial hip joint (principal)
CPT/HCPCS: 97110; 97162; 97530

== ENCOUNTER → 2022-09-02 09:27 | Outpatient (BNVA) | payer OTHER, MEDICARE, SELFPAY | PROVIDERS: PCP Internal Medicine; Visit Provider Orthopaedic Surgery | DX: M79.604 Pain in right leg (principal); M54.9 Dorsalgia, unspecified; R10.30 Lower abdominal pain, unspecified; Z96.641 Presence of right artificial hip joint | CPT/HCPCS: 99212 ==

== ENCOUNTER 2022-12-05 09:17 | Outpatient (REF) | payer OTHER, MEDICARE, SELFPAY ==
--- NOTE | ~2022-12-05 | XR_ITS ---
EXAMINATION: XR PELVIS CLINICAL INFORMATION: Pain in unspecified hip. COMPARISON: 06/17/2022, 05/20/2022. TECHNIQUE: 2 AP views. FINDINGS: The bones are diffusely demineralized. Right hip total arthroplasty redemonstrated and appears intact. Mild degenerative changes left hip with joint space narrowing and hypertrophic change. Mild degenerative changes in the bilateral sacroiliac joints. XR/XR pelvis 1-2V IMPRESSION: Right hip total arthroplasty redemonstrated and appears intact on AP views provided. Mild degenerative changes left hip. Additional imaging with CT scan or MRI should be considered for better visualization as these modalities are much more sensitive for detection of fracture or other underlying pathology.
== END 2022-12-05 09:18 | disposition home or self-care (01) ==
LOC: HO.HOSX 09:17
PROVIDERS: Visit Provider Orthopaedic Surgery
DX: M25.551 Pain in right hip (principal); Z96.641 Presence of right artificial hip joint
CPT/HCPCS: 72170; 99212

== ENCOUNTER 2022-12-05 11:22 | Outpatient (AMB) | payer MEDICARE, SELFPAY ==
[2022-12-05 11:28] VITALS: BMI 16.1
--- NOTE | 2022-12-05 11:28 | MHC.OFFVIS ---
Intake Vital Signs 12/05/22 11:28 Height 5 ft 4 in Weight 94 lb BMI 16.1 Intake Visit Reasons: OV - Right Hip Joshua, 05/03/22 NE Intake Note: Anne Marie is a 72 year old female who presents today for a follow up of her right hip, she is s/p Right Hip Joshua 05/03/22. Patient reports that she is doinf well with no complaints. She has an occasional bad day but most are good. Allergies oxycodone [From PERCODAN] Allergy (Unknown, Verified 06/17/22 12:38) HALLUCINATIONS HPI OV - Right Hip Joshua, 05/03/22 NE HPI Details Doign well with no groin pain. Was treated for femoral neck fracture with MITCHELL and was having groin pain but that has dissipated. [facility] Social History Household Members: Family Housing: House Do you presently have visiting nurse or other home services: No Alcohol intake: never Patient Tobacco Use Status: Current everyday Tobacco user Tobacco use type: Cigarette Cigarette Packs Per Day: 1 Cigarettes Per Day: 20.0 e-Cigarette/Vaping Use: Never Used Second Hand Smoke Exposure: No service: No Current occupational status: employed Physical Exam Vital Signs: BMI result Body Mass Index 16.1 Extrem Other: nl gait no pain with passive and active hip ROM Results Reviewed Results Reviewed: I personally reviewed relevant radiographs. Right bipolar in expected post operative position with no hardware complications or evidence of loosening Assessment & Plan Assessment & Plan (1) S/P hip hemiarthroplasty: Comment: Right hip Code(s): Z96.649 - Presence of unspecified artificial hip joint Plan: Doing well wiht no complaints. No intervention warranted. F/u as needed. Orders: Orders XR pelvis 1-2V 12/05/22 M25.559 - Pain in unspecified hip Coding Level of Care Code Est Pt Level 3 (24026) Diagnoses S/P hip hemiarthroplasty Z96.649
== END 2022-12-05 11:39 | disposition home or self-care (01) ==
PROVIDERS: PCP Internal Medicine; Visit Provider Orthopaedic Surgery
DX: Z47.1 Aftercare following joint replacement surgery (principal); Z96.641 Presence of right artificial hip joint
CPT/HCPCS: 99213

== ENCOUNTER 2023-05-05 09:16 | Outpatient (AMB) | payer OTHER, SELFPAY ==
--- NOTE | 2023-05-05 09:28 | A.OFFVIS_ITS ---
Intake Intake Visit Reasons: OV - Right Hip Joshua, 05/03/22 NE Intake Note: Anne Marie is a 72 year old female who presents today for a follow up of her right hip, she is s/p Right Hip Joshua 05/03/22. At her last visit she was instructed to follow up PRN. Patient reports that she is doing progressivley better. She does not have to take medication as frequently and is able to do most activities within limits. Allergies oxycodone [From PERCODAN] Allergy (Unknown, Verified 06/17/22 12:38) HALLUCINATIONS HPI OV - Right Hip Joshua, 05/03/22 NE HPI Details Anne Marie is a 73 year old woman who returns ~1 year S/P right hip hemiarthroplasty. She reports feeling better, and more capable of engaging in ADLs without assi stance. She says she takes medication for pain relief less frequently throughout the day and is able to engage in most activities without restrictions. She is happy with the results of her surgery. [facility] Social History Household Members: Family Housing: House Do you presently have visiting nurse or other home services: No Alcohol intake: never Patient Tobacco Use Status: Current everyday Tobacco user Tobacco use type: Cigarette Cigarette Packs Per Day: 1 Cigarettes Per Day: 20.0 e-Cigarette/Vaping Use: Never Used Second Hand Smoke Exposure: No service: No Current occupational status: employed Review of Systems Const All systems reviewed & are unremarkable except as noted in HPI and below Physical Exam Const General: no acute distress, alert and awake Orientation/consciousness: patient oriented x3 HEENT Head: Yes normocephalic and Yes atraumatic Eyes EOM: EOMs intact bilaterally Resp Effort & Inspection: normal respiratory effort and able to speak in complete sentences Cardio Jugular venous distension: no JVD Skin General skin exam: turgor normal Rashes: no rashes Neuro General: patient oriented x3 Extrem Other: No pain with hip range of motion Very mild Trendelenburg gait Well-healed incision Psych Appearance: grossly normal Affect: normal affect Attitude: cooperative Results Reviewed Results Reviewed: I personally reviewed relevant radiographs. Status post right hip hemiarthroplasty with no hardware complications. Assessment & Plan Assessment & Plan (1) S/P hip hemiarthroplasty: Comment: Right hip Code(s): Z96.649 - Presence of unspecified artificial hip joint Plan: This is a 73-year-old woman who is proximally 1 year status post right femoral neck fracture treated with hemiarthroplasty. She is doing well. She has reached maximum medical improvement. No additional intervention is warranted. She may work as tolerated without restrictions. Plan Prepared for Ranjit Merrill MD by Ed Dinh, medical genetics director, on 05/05/23 at 9:35 AM, EST. Orders: Orders XR pelvis 1-2V 05/05/23 M25.559 - Pain in unspecified hip Coding Level of Care Code Est Pt Level 3 (30621) Diagnoses S/P hip hemiarthroplasty Z96.649
== END 2023-05-05 10:20 | disposition home or self-care (01) ==
PROVIDERS: PCP Internal Medicine; Visit Provider Orthopaedic Surgery
DX: Z47.1 Aftercare following joint replacement surgery (principal); Z96.641 Presence of right artificial hip joint
CPT/HCPCS: 99213

== ENCOUNTER 2023-05-05 09:16 | Outpatient (REF) | payer OTHER, SELFPAY ==
--- NOTE | ~2023-05-05 | XR_ITS ---
EXAMINATION: XR PELVIS CLINICAL INFORMATION: Pain in unspecified hip. COMPARISON: 11/25/2022 AP pelvis and prior. TECHNIQUE: AP view of the pelvis. FINDINGS: Redemonstration of right total hip arthroplasty. Hardware appears intact. Bones are diffusely demineralized. Redemonstration of mild degenerative changes in the left hip with joint space narrowing and hypertrophic change. Mild degenerative changes in the bilateral sacroiliac joints. Redemonstration of chronic degenerative changes at the pubic symphysis. XR/XR pelvis 1-2V IMPRESSION: 1. Redemonstration of right total hip arthroplasty. Hardware appears intact. 2. Redemonstration of mild degenerative changes in the left hip.
== END 2023-05-05 09:17 | disposition home or self-care (01) ==
LOC: HO.HOSX 09:16
PROVIDERS: PCP Internal Medicine; Visit Provider Orthopaedic Surgery
DX: M25.551 Pain in right hip (principal); Z96.641 Presence of right artificial hip joint
CPT/HCPCS: 72170; 99212

== ENCOUNTER 2023-10-27 08:37 | Outpatient (REF) | payer OTHER, SELFPAY ==
--- NOTE | ~2023-10-27 | XR_ITS ---
EXAMINATION: XR PELVIS CLINICAL INFORMATION: Pain COMPARISON: Pelvis radiographs 05/05/2023 TECHNIQUE: AP view of the pelvis. FINDINGS: Status post right total hip arthroplasty. No evidence of hardware fracture or complication. Left hip joint space is maintained. No acute fracture or dislocation. Atherosclerotic vascular calcification. XR/XR pelvis 1-2V IMPRESSION: Status post right total hip arthroplasty. No evidence of hardware fracture or complication.
== END 2023-10-27 08:38 | disposition home or self-care (01) ==
LOC: HO.HOSX 08:37
PROVIDERS: Visit Provider Orthopaedic Surgery
DX: Z96.641 Presence of right artificial hip joint (principal)
CPT/HCPCS: 72170

== ENCOUNTER 2023-10-27 08:42 | Outpatient (AMB) | payer OTHER, SELFPAY ==
--- NOTE | 2023-10-27 09:01 | MHC.OFFVIS ---
Intake Visit Reasons: OV-RT Hip Joshua/RT side of thigh hurts when walking Intake Note: Anne Marie is a 72 year old female who presents today for a follow up of her right hip, she is s/p Right Hip Joshua 05/03/22. Patient reports that she is having an increase of pain on the medial aspect of her thigh with walking, which causes her to limp. Seh explains this as a very sharp pain. This does not always happen when walking, it onsets randomly. Allergies oxycodone [From PERCODAN] Allergy (Unknown, Verified 06/17/22 12:38) HALLUCINATIONS HPI HPI OV-RT Hip Joshua/RT side of thigh hurts when walking: Details: Anne Marie is a 72 year old female who presents today for a follow up of her right hip, she is s/p Right Hip Joshua 05/03/22. Patient reports that she is having an increase of pain on the medial aspect of her thigh with walking, which causes her to limp. Seh explains this as a very sharp pain. This does not always happen when walking, it onsets randomly. [facility] Social History Household Members: Family Housing: House Do you presently have visiting nurse or other home services: No Alcohol intake: never Patient Tobacco Use Status: Current everyday Tobacco user Tobacco use type: Cigarette Cigarette Packs Per Day: 1 Cigarettes Per Day: 20.0 e-Cigarette/Vaping Use: Never Used Second Hand Smoke Exposure: No service: No Current occupational status: employed Physical Exam Const General: no acute distress, alert and awake Orientation/consciousness: patient oriented x3 HEENT Head: Yes normocephalic and Yes atraumatic Eyes EOM: EOMs intact bilaterally Resp Effort & Inspection: normal respiratory effort and able to speak in complete sentences Cardio Jugular venous distension: no JVD Skin General skin exam: turgor normal Rashes: no rashes Neuro General: patient oriented x3 Extrem Other: + impingement Very mild Trendelenburg gait Well-healed incision Psych Appearance: grossly normal Affect: normal affect Attitude: cooperative Results Reviewed Results Reviewed: I personally reviewed relevant radiographs. Right MITCHELL in expected post operative position with no hardware complications or evidence of loosening Assessment & Plan Assessment & Plan (1) S/P hip hemiarthroplasty: Comment: Right hip Code(s): Z96.649 - Presence of unspecified artificial hip joint Category: Surgical Plan: Anne Marie is a 73-year-old female several years status post right hip hemiarthroplasty. She continues to have intermittent discomfort. Now she presents with occasional pain in her medial thigh. She does not endorse any particular activities that make this better or worse. She works and is active and for the most part feels like she can walk comfortably. We have had this conversation multiple times. I discussed and explained with her that I suspect this is coming from her hip and that her acetabulum is unresurfaced. I explained that if she gets to the point where she feels like her activities are limited we might want to consider conversion to a total hip arthroplasty. Currently however, she seems minimally limited by this occasional pain. She can follow up as needed. Orders: Orders XR pelvis 1-2V Today M25.559 - Pain in unspecified hip Coding Level of Care Code Est Pt Level 4 (69865) Diagnoses S/P hip hemiarthroplasty Z96.649
== END 2023-10-27 09:29 | disposition home or self-care (01) ==
PROVIDERS: PCP Internal Medicine; Visit Provider Orthopaedic Surgery
DX: M25.551 Pain in right hip (principal); Z96.641 Presence of right artificial hip joint
CPT/HCPCS: 99213

== ENCOUNTER 2024-03-18 13:28 | Emergency (ER) | payer MEDICARE, SELFPAY ==
[2024-03-18] VITALS (9 sets, daily range): BP systolic 108–140; BP diastolic 66–107; PULSE 80–152; RESP 16–19; TEMP 36.4–37; O2SAT 93–98; BMI 18.9
--- NOTE | 2024-03-18 13:31 | ECG_ITS ---
Test Reason : palpittaions Blood Pressure : / mmHG Vent. Rate : 140 BPM Atrial Rate : 348 BPM P-R Int : 000 ms QRS Dur : 072 ms QT Int : 320 ms P-R-T Axes : 000 053 -28 degrees QTc Int : 488 ms Atrial flutter with variable A-V block Nonspecific ST and T wave abnormality Abnormal ECG When compared with ECG of 03-MAY-2022 08:27, Atrial flutter has replaced Sinus rhythm Vent. rate has increased BY 64 BPM Nonspecific T wave abnormality now evident in Inferior leads Nonspecific T wave abnormality now evident in Anterolateral leads Referred By: Guillermo Interiano Electronically Signed By:DEMETRIO SHEN MD
[2024-03-18 14:11] LABS: MANUAL DIFF FLAG NO
[2024-03-18 14:13] LABS: Basophils Percent Auto 0.5 % (0-2); Eosinophils Absolute Auto 0.1 X10*3/uL (0.0-0.4); Eosinophils Percent Auto 1.5 % (0-4); Hematocrit 43.5 % (37.0-47.0); Hemoglobin 14.7 g/dl (12.0-16.0); Imm Gran Abs Auto 0.03 X10*3/uL (0.00-0.03); Imm Gran Pct Auto 0.3 % (0.0-0.4); Lymphocytes Absolute Auto 3.1 X10*3/uL (1.2-4.9); Lymphocytes Percent Auto 35.2 % (20-40); Mean Corpuscular HGB Conc 33.8 g/dl (31.0-35.0); Mean Corpuscular Hemoglobin 30.6 pg (27.0-33.0); Mean Corpuscular Volume 90.6 fL (80.0-98.0); Mean Platelet Volume 11.3 fL (9.4-12.3); Monocytes Absolute Auto 0.5 X10*3/uL (0.1-1.2); Monocytes Percent Auto 5.6 % (2-11); Neutrophils Percent Auto 56.9 % (45-73); Platelet Count 308 X10*3/uL (160-400); Red Cell Distribution Width 13.3 % (11.0-16.0); White Blood Count 8.8 X10*3/uL (4.8-10.8)
[2024-03-18 14:20] LABS: INTERNATIONAL NORM RATIO 0.9 (0.9-1.1); Prothrombin Time 10.9 SEC (10.9-12.4)
[2024-03-18] MEDS: dilTIAZem HCL 50 MG/10 ML VIAL 10 MG IVPUSH (14:26)
--- NOTE | 2024-03-18 14:26 | ED.ARRPALP ---
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 Notes she was sick about a month ago and her daughter exposed her to walking pneumonia she was offered prednisone by car whacker but never took it. She notes since then on and off elevated HR that occurs at rest. She felt dizzy at times. No recent travel or procedures. URI still has cough but no fevers. She denies CP/SOB. She is not a drinker and she notes no recent OTC meds or supplements MD complaint: heart racing and palpitations Onset (ago): month(s) (1) Duration: intermittent Severity: moderate Context: occurred during rest Associated symptoms: other (cough) Related Data Home Medications ?Medication ?Instructions ?Recorded ?Confirmed budesonide-formoterol HFA 160 2 puff inhalation BID 05/02/22 05/02/22 mcg-4.5 mcg/actuation aerosol inhaler (Symbicort) omeprazole 20 mg capsule,delayed 20 mg PO DAILY 12/05/22 release Previous Rx's ?Medication ?Instructions ?Recorded acetaminophen 325 mg tablet 650 mg (2 x 325 mg) PO Q6H PRN 05/09/22 Pain, Mild (Pain Scale 1-3) #20 tabs apixaban 2.5 mg tablet (Eliquis) 2.5 mg PO BID #60 tabs 03/18/24 diltiazem HCl 120 mg 120 mg PO DAILY #30 caps 03/18/24 capsule,extended release 24 hr Allergies Allergy/AdvReac Type Severity Reaction Status Date / Time oxycodone [From PERCODAN] Allergy Unknown HALLUCINATI Verified 06/17/22 12:38 ONS nickel Allergy Unknown Verified 03/18/24 14:16 wool Allergy Unknown Verified 03/18/24 14:16 Review of Systems Review of Systems: Constitutional : No Fever, No Chills, No Fatigue ENT/Mouth : No sore throat, No Rhinorrhea Eyes: No Eye Pain, No Swelling, No Redness Cardiovascular : pos Chest Pain, pos SOB, No Dyspnea on Exertion Respiratory : No Cough, No Sputum, pos palpitations Gastrointestinal : No Nausea, No Vomiting, No Diarrhea, No abdominal Pain Genitourinary : No Dysuria, No Urinary Frequency, No Hematuria, Musculoskeletal : No joint pain, No Myalgias, No Joint Swelling Skin : No Skin Lesions, No rash Neuro : No Weakness, No Numbness, No Dizziness, no Headache Psych : No Anxiety/Panic, No Depression All other systems reviewed and are negative [facility] Past Medical History Attestation statement: The following information was validated with the patient. Source: old records reviewed Medical History COPD (chronic obstructive pulmonary disease) Social History Social History Household Members: Family Housing: House Do you presently have visiting nurse or other home services: No Alcohol intake: never Patient Tobacco Use Status: Current everyday Tobacco user Tobacco use type: Cigarette Cigarette Packs Per Day: 1 Cigarettes Per Day: 20.0 Smoked in Last 30 Days: Yes e-Cigarette/Vaping Use: Never Used Second Hand Smoke Exposure: No Use of substances other than those prescribed or required for medical reasons: No Advance Directives: Yes Advance Directives on File: Yes Advance Directives Date on File: 05/20/22 service: No Current occupational status: employed Physical Exam Vital Signs: Vital Signs: Last Vital Signs Temp 98.6 F 03/18/24 14:10 Pulse 95 03/18/24 16:06 Resp 19 03/18/24 16:06 BP 129/77 03/18/24 16:06 Pulse Ox 93 03/18/24 14:19 O2 Del Method Room Air 03/18/24 14:19 BMI result Body Mass Index 18.9 Appearance: Alert. Oriented X3. No acute distress. Eyes: Pupils equal, round and reactive to light. ENT: Pharynx normal. Neck: Normal inspection. Neck supple. CVS: tachycardic irregular heart rate and rhythm. Pulses normal. Respiratory: No respiratory distress. Breath sounds normal. Abdomen: Soft and non-tender. Skin: Skin warm and dry. Normal skin color. Extremities: No lower extremity edema. Neuro: Oriented X 3. No motor deficit. No sensory deficit. Medications Administered Generic Name Dose Route Start Last Admin Trade Name Freq PRN Reason Stop Dose Admin Diltiazem HCl 30 mg 03/18/24 15:30 03/18/24 16:03 Diltiazem Hcl 30 Mg Tablet PO 30 mg ONCE TRAVON Administration Discontinued Medications Generic Name Dose Route Start Last Admin Trade Name Kvng PRN Reason Stop Dose Admin Apixaban 2.5 mg 03/18/24 14:28 03/18/24 14:38 Apixaban 2.5 Mg Tablet PO 03/18/24 14:29 2.5 mg ONCE ONE Administration Diltiazem HCl 10 mg 03/18/24 14:22 03/18/24 14:26 Diltiazem Hcl 50 Mg/10 Ml Vial IVPUSH 03/18/24 14:23 10 mg STAT STA Administration Diltiazem HCl 5 mg 03/18/24 15:56 03/18/24 16:03 Diltiazem Hcl 50 Mg/10 Ml Vial IVPUSH 03/18/24 15:57 5 mg ONCE ONE Administration Medical Decision Making Medical Decision Making MDM Narrative: 74 yo female with PMH of COPD 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 Doubt ACS at this time symptoms on and off x 1 month she has chadsvasc2 score = 2 her BW is 49 will give IV dose of dilt and likely PO she doesn't want to stay in the hospital and given her low body weight will start on 2.5mg eliquis she cannot tell me any contraindications to DOAC. Differential Diagnosis Differential Diagnoses: The differential diagnosis associated with the presentation includes afib, lyte abnormality, thyroid issue Admission/Observation Consideration of admission/observation: Escalation of care including admission/observation considered HR down to 90s after initial bolus - oral dilt ordered has COPD hx of noncompliance would hold off beta antony start on dilt 120mg tomorrow AM gave short acting tonight really doesn't want to stay HR down in 80s feels better Lab Data [facility] Lab Attestation statement: I reviewed the patient's lab results. 03/18/24 14:06 03/18/24 14:06 Labs: Lab Results 03/18/24 03/18/24 Range/Units 14:06 15:44 WBC 8.8 (4.8-10.8) X10*3/uL RBC 4.80 (4.20-5.50) X10*6/uL Hgb 14.7 D (12.0-16.0) g/dl Hct 43.5 (37.0-47.0) % MCV 90.6 (80.0-98.0) fL MCH 30.6 (27.0-33.0) pg MCHC 33.8 (31.0-35.0) g/dl RDW 13.3 (11.0-16.0) % Plt Count 308 (160-400) X10*3/uL MPV 11.3 (9.4-12.3) fL Immature Gran % (Auto) 0.3 (0.0-0.4) % Neut % (Auto) 56.9 (45-73) % Lymph % (Auto) 35.2 (20-40) % [place] % (Auto) 5.6 (2-11) % Eos % (Auto) 1.5 (0-4) % Baso % (Auto) 0.5 (0-2) % Lymph # (Auto) 3.1 (1.2-4.9) X10*3/uL [place] # (Auto) 0.5 (0.1-1.2) X10*3/uL Eos # (Auto) 0.1 (0.0-0.4) X10*3/uL Baso # (Auto) 0.0 (0.0-0.2) X10*3/uL Abs Immat Gran (auto) 0.03 (0.00-0.03) X10*3/uL Absolute Neuts (auto) 5.0 (2.0-8.3) x10*3/uL Absolute Nucleated RBC 0.000 (0.0-0.012) X10*3/uL Nucleated RBC % (auto) 0.0 (0.0-0.2) /100WBC PT 10.9 (10.9-12.4) SEC INR 0.9 (0.9-1.1) Sodium 144 (135-145) mmol/L Potassium 3.7 (3.3-5.1) mmol/L Chloride 107 (96-108) mmol/L Carbon Dioxide 26 (22-29) mmol/L Anion Gap 15 (12-20) BUN 15 (9-16) mg/dL Creatinine 0.87 (0.5-1.4) mg/dL Estim Creat Clear Calc 43.9 Estimated GFR > 60 Random Glucose 122 H (60-115) mg/dL Calcium 9.0 (8.4-10.2) mg/dL Magnesium 2.1 (1.6-2.6) mg/dL Total Bilirubin 0.5 (0.0-1.0) mg/dL AST 19 (5-31) U/L ALT 11 (0-31) U/L Alkaline Phosphatase 58 (39-117) U/L Troponin I High Sens < 2.7 (<3.5-17.0) ng/L Total Protein 6.9 (6.5-8.0) g/dL Albumin 4.0 (3.5-5.0) g/dL Lipase 12 (8-78) U/L TSH 0.93 (0.32-4.0) uIU/mL Urine Color Yellow Urine Appearance Cloudy Urine pH 5.5 (5.0-9.0) Ur Specific [place] 1.010 (1.005-1.025) Urine Protein Trace (Neg-Trace) mg/dL Urine Glucose (UA) Negative (Negative) mg/dL Urine Ketones Negative (Negative) mg/dL Urine Blood Negative (Negative) Urine Nitrite Negative (Negative) Ur Leukocyte Esterase Trace H (Negative) Independent Interpretation I performed an independent interpretation of an: EKG Interpretation: Rate: 140 Rhythm: aflutter variable [place]: normal Normal QRS complex. ST T wave : no REENA qTC: 488 prior studies: none The study has been interpreted contemporaneously by me. . Prescription Management I considered prescription management with: Other Critical Care Time Critical Care Time Critical Care Time: Yes Total Critical Care Time: 45 Attestation: repeat IV dilt, start on DOAC with conversation about bleeding, rate control of afib with RVR I attest to this time spent taking care of the patient Discharge Plan Discharge Clinical Impression: Atrial flutter Patient Disposition: Home, Self-Care Instructions: Diltiazem (By mouth), Apixaban (By mouth), Atrial Flutter (ED) Additional Instructions: you were given medications to slow your heart rate down things that can make your heart rate go up include caffeine, alcohol. you need to see your doctor as soon as possible you need to return for worsening symptoms such as increased heart rate, swelling of legs, trouble breathing, chest pain or any other concerns you need to start your next dose of medications tomorrow given the blood thinner seek medical care if you fall and hit your head, you notice bloody stools or black stools, you have areas of bleeding that will not step including nose bleed. hold diltiazem if heart rate is below 60, top blood pressure is lower than 90, if you feel faint or dizzy. Prescriptions: New Eliquis 2.5 mg tablet 2.5 mg PO BID Qty: 60 1RF diltiazem HCl 120 mg capsule,extended release 24hr 120 mg PO DAILY Qty: 30 1RF No Action budesonide-formoterol [Symbicort] 160-4.5 mcg/actuation Hfa Aerosol Inhaler 2 puff INHALATION BID acetaminophen 325 mg Tablet 650 mg PO Q6H PRN (Reason: Pain, Mild (Pain Scale 1-3)) Qty: 20 0RF omeprazole 20 mg capsule,delayed release(DR/EC) 20 mg PO DAILY Referrals: [facility] [Provider Group] (you need to call to schedule appointment) Print Language: Andorran
[2024-03-18 14:37] LABS: Alanine Aminotransferase 11 U/L (0-31); Anion Gap 15 (12-20); Aspartate Amino Transferase 19 U/L (5-31); Bilirubin Total 0.5 mg/dL (0.0-1.0); Blood Urea Nitrogen 15 mg/dL (9-16); Carbon Dioxide 26 mmol/L (22-29); Chloride 107 mmol/L (96-108); Creatinine Clr Calc Pharmacy 43.9; Estimated Glomerular Filt Rate > 60; Glucose Random 122 mg/dL (60-115); Lipase 12 U/L (8-78); Magnesium 2.1 mg/dL (1.6-2.6); Potassium 3.7 mmol/L (3.3-5.1); Sodium 144 mmol/L (135-145); Total Protein 6.9 g/dL (6.5-8.0); Troponin-I High Sensitivity < 2.7 ng/L (<3.5-17.0)
[2024-03-18] MEDS: Apixaban 2.5 MG TABLET PO (14:38)
[2024-03-18 14:47] LABS: Alkaline Phosphatase 58 U/L (39-117)
[2024-03-18 14:53] LABS: TSH reflex Free T4 0.93 uIU/mL (0.32-4.0)
[2024-03-18 15:53] LABS: Appearance Urine Cloudy; Color Urine Yellow; Glucose Urine UA Negative (Negative); Leukocyte Esterase Urine Trace (Negative); Nitrite Urine Negative (Negative); PH 5.5 (5.0-9.0); UMIC TRIGGER UACC YES; Urine Blood Negative (Negative); Urine Ketones Negative (Negative); Urine Protein Trace mg/dL (Neg-Trace)
[2024-03-18] MEDS: dilTIAZem HCL 30 MG TABLET PO (16:03)
[2024-03-18] MEDS: dilTIAZem HCL 50 MG/10 ML VIAL IVPUSH (16:03)
[2024-03-18 18:41] LABS: B Type Natriuretic Peptide 669 pg/mL (<100)
[2024-03-18 18:57] LABS: Bacteria Urine 1+ (None Seen); Hyaline Casts Urine 0-2 /LPF (0-2); RBC Urine 0-2 /HPF (0-2); Squamous Epithelial Cell Urine >20 /HPF (0-2); UACC Culture Trigger YES
== END 2024-03-18 16:52 | disposition home or self-care (01) ==
PROVIDERS: Physician Assistant; Emergency Provider Emergency Medicine; PCP Internal Medicine
DX: I48.92 Unspecified atrial flutter (principal); R07.9 Chest pain, unspecified; R06.02 Shortness of breath; R05.9 Cough, unspecified; F17.210 Nicotine dependence, cigarettes, uncomplicated; J44.9 Chronic obstructive pulmonary disease, unspecified; Z79.899 Other long term (current) drug therapy
CPT/HCPCS: 36415; 80053; 81001; 83690; 83735; 83880; 84443; 84484; 85025; 85610; 87086; 93005; 96374; 96376; 99285

== ENCOUNTER → 2024-03-18 13:31 | Outpatient (BNV) | payer MEDICARE, SELFPAY | PROVIDERS: Emergency Provider Emergency Medicine; PCP Internal Medicine; Visit Provider Internal Medicine Cardiovascular Disease | DX: R00.2 Palpitations (principal); I48.92 Unspecified atrial flutter; R94.31 Abnormal electrocardiogram [ECG] [EKG] | CPT/HCPCS: 93010 ==